=== PATIENT | male | born 1960 | race African-American/Black ===

== ENCOUNTER 2017-02-08 16:16 | Emergency (ER) | payer BC, OTHER ==
[2017-02-08] MEDS ORDERED: FAMOTIDINE INJ/PF 20 MG/2 ML SDV IV ONE (16:47)
[2017-02-08] MEDS ORDERED: DIPHENHYDRAMINE HCL 50 MG/ML VIAL IV ONE (16:47)
--- NOTE | 2017-02-08 16:56 | ER Document Report ---
ED General - General Stated Complaint: SHORTNESS OF BREATH Time Seen by Provider: 02/08/17 16:37 Mode of Arrival: Ambulatory Information source: Patient - HPI Patient complains to provider of: Shortness of breath, diaphoresis Onset: Just prior to arrival Onset/Duration: Sudden Quality of pain: No pain Associated symptoms: Headache, Shortness of breath Exacerbated by: Denies Relieved by: Denies Similar symptoms previously: No Recently seen / treated by doctor: Yes Notes: Patient is a 56-year-old male presenting to the emergency room today complaining of shortness of breath with diaphoresis and chest tightness, as well as a mild headache, he reports that he was seen at urgent care earlier today because he has been experiencing some dizziness for the last few days, they started him on Augmentin for unknown reason, he took his first dose around noon today, around 4 PM he developed the above symptoms, he has never taken Augmentin in the past, otherwise has a history of COPD and eczema, 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, he is not currently a smoker, denies chest pain, no nausea or vomiting Past Medical History - General Information source: Patient - Social History Smoking Status: Former Smoker Family History: Reviewed & Not Pertinent Review of Systems - Review of Systems Constitutional: Chills, Diaphoresis EENT: No symptoms reported Cardiovascular: See HPI Respiratory: See HPI Gastrointestinal: No symptoms reported Genitourinary: No symptoms reported Male Genitourinary: No symptoms reported Musculoskeletal: No symptoms reported Skin: No symptoms reported Hematologic/Lymphatic: No symptoms reported Neurological/Psychological: Headaches -: Yes All other systems reviewed and negative Physical Exam - Vital signs Vitals: Resp Pulse Ox 24 H 92 02/08/17 16:22 02/08/17 16:22 Interpretation: Tachycardic, Tachypneic - General General appearance: Alert In distress: Mild - HEENT Head: Normocephalic, Atraumatic Eyes: Normal Conjunctiva: Normal Extraocular movements intact: Yes Eyelashes: Normal Pupils: PERRL Mucous membranes: Normal Neck: Normal - Respiratory Respiratory status: No respiratory distress, Tachypnea Chest status: Nontender Breath sounds: Normal, Nonproductive cough Chest palpation: Normal - Cardiovascular Rhythm: Regular, Tachycardia Heart sounds: Normal auscultation Murmur: No - Abdominal Inspection: Normal Distension: No distension Bowel sounds: Normal Tenderness: Nontender Organomegaly: No organomegaly - Back Back: Normal, Nontender - Extremities General upper extremity: Normal inspection, Nontender, Normal color, Normal ROM , Normal temperature General lower extremity: Normal inspection, Nontender, Normal color, Normal ROM , Normal temperature, Normal weight bearing. No: Mela's sign - Neurological Neuro grossly intact: Yes Cognition: Normal Orientation: AAOx4 [place] Coma Scale Eye Opening: Spontaneous [place] Coma Scale Verbal: Oriented Ct Coma Scale Motor: Obeys Commands [place] Coma Scale Total: 15 Speech: Normal Motor strength normal: LUE, RUE, LLE, RLE Sensory: Normal - Psychological Associated symptoms: Normal affect, Normal mood - Skin Skin Temperature: Warm Skin Moisture: Diaphoretic - Profusely Skin Color: Normal Course - Re-evaluation Re-evalutation: 02/08/17 20:06 Patient tachycardic with shortness of breath, episodes of lightheadedness over the last few days, profusely diaphoretic, symptoms could possibly be a result of an allergic reaction to Augmentin which he started today and has never taken in the past, also concerned for pulmonary embolus, d-dimer is positive, therefore patient was sent for a CTA He is noted to have elevated creatinine as well, was given IV fluids, after 2 L of IV fluids his tachycardia resolved, he did have transient hypotension which resolved as well, CT scan shows no evidence of PE, however there are multiple pulmonary nodules, pneumatoceles and liver masses Patient was discussed with oncology on-call, Dr. Shaffer, who recommends outpatient follow-up in his office next week 02/08/17 23:39 Lab and imaging findings were discussed with patient and at bedside, patient was strongly cautioned to return to the emergency room immediately if symptoms should worsen in any way, he was advised to discontinue the Augmentin as it may have caused an allergic reaction and appears to be completely unnecessary at this point in time, he was provided with information to follow- up with oncology next week and advised to return at any time should he have any additional concerns, patient and spouse acknowledge understanding and agreement with this plan - Vital Signs Vital signs: Temp Pulse Resp BP Pulse Ox 19 110/75 94 02/08/17 20:30 02/08/17 20:31 02/08/17 20:30 - Laboratory Result Diagrams: 02/08/17 16:47 02/08/17 16:29 Laboratory results interpreted by me: 02/08/17 02/08/17 02/08/17 16:29 16:29 16:29 WBC Hgb Hct RDW Band Neutrophils % Monocytes % (Manual) Abs Neuts (Manual) D-Dimer 3.14 H VBG pH VBG pCO2 Creatinine 1.64 H Est GFR ( Amer) 53 L Est GFR (Non-Af Amer) 44 L Glucose 161 H Total Bilirubin 2.5 H Direct Bilirubin 1.7 H AST 133 H ALT 126 H Alkaline Phosphatase 160 H Creatine Kinase 284 H NT-Pro-B Natriuret Pep 1020 H Urine Protein Urine Blood Urine Urobilinogen 02/08/17 02/08/17 02/08/17 16:29 16:47 17:15 WBC 12.3 H Hgb 13.0 L Hct 36.7 L RDW 14.3 H Band Neutrophils % 6 H Monocytes % (Manual) 1 L Abs Neuts (Manual) 9.0 H D-Dimer VBG pH 7.48 H VBG pCO2 31.8 L Creatinine Est GFR ( Amer) Est GFR (Non-Af Amer) Glucose Total Bilirubin Direct Bilirubin AST ALT Alkaline Phosphatase Creatine Kinase NT-Pro-B Natriuret Pep Urine Protein 30 H Urine Blood MODERATE H Urine Urobilinogen 4.0 H - Diagnostic Test Radiology reviewed: Image reviewed, Reports reviewed - EKG Interpretation by Me EKG shows normal: Sinus rhythm Rate: Tachycardia Discharge - Discharge Clinical Impression: Liver mass, Pulmonary nodules/lesions, multiple Condition: Stable Disposition: HOME, SELF-CARE Instructions: Growth or Mass, Pending Workup ([facility]) Additional Instructions: Follow-up with your primary care provider and an oncologist early next week. Return to the emergency room immediately if symptoms worsen or any additional concerns. Drink plenty of fluids and get plenty of rest. Stop taking the antibiotics that were previously prescribed to you as they may have caused the reaction and are not necessary Referrals: GHULAM REYNOLDS NP-C [Primary Care Provider] - Follow up as needed NAIAL SHAFFER MD [ACTIVE STAFF] - Follow up as needed
--- NOTE | 2017-02-08 17:21 | RADIOLOGY REPORT (SQ) ---
EXAM DESCRIPTION: CHEST PA/LAT COMPLETED DATE/TIME: 02/08/2017 5:05 pm REASON FOR STUDY: db COMPARISON: None. EXAM PARAMETERS: NUMBER OF VIEWS: two views TECHNIQUE: Digital Frontal and Lateral radiographic views of the chest acquired. RADIATION DOSE: NA LIMITATIONS: none FINDINGS: LUNGS AND PLEURA: No infiltrate or effusion. There appears to be prominent pneumatocele a nteriorly in the left lung. This is seen on the lateral view as well. MEDIASTINUM AND HILAR STRUCTURES: No masses or contour abnormalities. HEART AND VASCULAR STRUCTURES: Heart normal size. No evidence for failure. BONES: No acute findings. HARDWARE: None in the chest. OTHER: No other significant finding. IMPRESSION: 1. No acute cardiopulmonary disease. 2. Prominent left-sided pneumatocele. TECHNICAL DOCUMENTATION: JOB ID: [id number] [employer]- All Rights Reserved
[2017-02-08 17:24] LABS: APPEARANCE,URINE SLIGHTLY-CLOUDY; BILIRUBIN,URINE NEGATIVE (NEGATIVE); GLUCOSE, URINE NEGATIVE (NEGATIVE); KETONES,URINE NEGATIVE (NEGATIVE); LEUKOCYTE ESTERASE,URINE NEGATIVE (NEGATIVE); NITRITE,URINE NEGATIVE (NEGATIVE); PROTEIN,URINE 30 mg/dL (NEGATIVE); URINE SPECIFIC GRAVITY 1.006
[2017-02-08 17:33] LABS: ALANINE AMINOTRANSFERASE 126 U/L (21-72); ALBUMIN 3.8 g/dL (3.5-5.0); ALKALINE PHOSPHATASE 160 U/L (38-126); ANION GAP 19 (5-19); ASPARTATE AMINO TRANSFERASE 133 U/L (17-59); BILIRUBIN,DIRECT 1.7 mg/dL (0.0-0.4); BILIRUBIN,TOTAL 2.5 mg/dL (0.2-1.3); BLOOD UREA NITROGEN 15 mg/dL (7-20); CARBON DIOXIDE 22 mmol/L (22-30); CHLORIDE 100 mmol/L (98-107); CREATINE KINASE 284 U/L (55-170); CREATININE RESULT 1.64 mg/dL (0.52-1.25); GLUCOSE 161 mg/dL (75-110); LIPASE 44.9 U/L (23-300); POTASSIUM 3.8 mmol/L (3.6-5.0); SODIUM 141.1 mmol/L (137-145); TOTAL PROTEIN 6.8 g/dL (6.3-8.2)
[2017-02-08 17:40] LABS: HEMATOCRIT 36.7 % (37.9-51.0); HGB HCT DIFFERENCE 2.3; MEAN CORPUSCULAR HEMOGLOBIN 29.7 pg (27.0-33.4); MEAN CORPUSCULAR HGB CONC 35.4 g/dL (32.0-36.0); MEAN CORPUSCULAR VOLUME 84 fl (80-97); RED BLOOD COUNT 4.38 10^6/uL (4.35-5.55); RED CELL DISTRIBUTION WIDTH 14.3 % (11.5-14.0); WHITE BLOOD COUNT 12.3 10^3/uL (4.0-10.5)
[2017-02-08 17:44] LABS: CREATINE KINASE MB 1.38 ng/mL (<4.55); TROPONIN I 0.013 ng/mL
[2017-02-08 17:48] LABS: BAND NEUTROPHILS % (MANUAL) 6 % (3-5); BASOPHILS % (MANUAL) 0 % (0-2); EOSINOPHILS % (MANUAL) 1 % (0-6); LYMPHOCYTES % (MANUAL) 23 % (13-45); TOTAL CELLS COUNTED 100; TOXIC VACUOLATION PRESENT
[2017-02-08 17:50] LABS: ANISOCYTOSIS SLIGHT; POLYCHROMASIA SLIGHT; TOXIC GRANULATION SLIGHT
[2017-02-08 18:18] LABS: VENOUS BLOOD BASE EXCESS 0.4 mmol/L; VENOUS BLOOD PCO2 31.8 mmHg (35-63); VENOUS BLOOD PH 7.48 (7.30-7.42)
--- NOTE | 2017-02-08 19:22 | RADIOLOGY REPORT (SQ) ---
EXAM DESCRIPTION: CTA CHEST COMPLETED DATE/TIME: 02/08/2017 6:44 pm REASON FOR STUDY: SOB COMPARISON: Chest radiograph 02/08/2017 TECHNIQUE: CT scan of the chest performed using helical scanning technique with dynamic intravenous contrast injection. Images reviewed with lung, soft tissue and bone windows. Reconstructed coronal and sagittal MPR images reviewed. Additional 3 dimensional post-processing performed to develop Maximal Intensity Projection images (GA P). All images stored on PACS. All CT scanners at this facility use dose modulation, iterative reconstruction, and/or weight based d osing when appropriate to reduce radiation dose to as low as reasonably achievable (ALARA). [facility]: Dose Right [facility]: CareDose [facility]: Dose Right [facility]: Teradose 4D [facility]: LISNR CONTRAST TYPE AND DOSE: contrast/concentration: Isovue 370.00 mg/ml; Total Contrast Delivered: 82.0 ml; Total Saline Delivered: 80.0 ml Contrast bolus optimized for the pulmonary arteries. Not diagnostic for the aorta. RENAL FUNCTION: BUN 15; creatinine 1.64 RADIATION DOSE: Up-to-date CT equipment and radiation dose reduction techniques were employed. CTDIv ol: 29.8 - 39.7 mGy. DLP: 1241 mGy-cm. . LIMITATIONS: None. FINDINGS: LUNGS AND PLEURA: Severe paraseptal emphysematous change involving predominantly the apica l lungs demonstrating multiple pneumatoceles bilaterally. An 8 mm pulmonary nodule is seen within th e right upper lobe (axial image 24). A 4 mm pulmonary nodule is seen within the right upper lobe (ax ial image 40). A 6 mm and a 4 mm nodular density seen adjacent to the minor fissure likely represent s visual lymph nodes. A 6 mm subpleural pulmonary nodule seen within the right middle lobe (axial im age 71). A 4 mm subpleural pulmonary nodule seen within the right middle lobe (axial image 77). An 8 x 14 mm pleural based nodule is seen within the right lower lobe (axial image 70). An 8 mm subpleu ral pulmonary nodule seen within the right lower lobe (axial image 84). A 6 mm subpleural pulmonary nodule seen within the left lower lobe (axial image 79). A 9 mm subpleural pulmonary nodule seen wit hin the left lower lobe (axial image 82). A 7 mm pulmonary nodule is seen at the left lower lobe bas e (axial image 91). No pleural effusion or pneumothorax is present. AORTA AND GREAT VESSELS: No aneurysm. Contrast bolus not optimized for the aorta. HEART: No pericardial effusion. No significant coronary artery calcifications. PULMONARY ARTERIES: No emboli visualized in the main pulmonary arteries or the segmental branches. HILAR AND MEDIASTINAL STRUCTURES: No identified masses or abnormal nodes. HARDWARE: None in the chest. UPPER ABDOMEN: A 10 x 5 x 8 cm hypo attenuating mass is seen within the dome of the left hepatic lobe . Additionally, a 4 x 3 x 4 cm hypoattenuating mass is seen within the right hepatic lobe. Incident al note is made of nodular thickening of the left adrenal gland. Small hypoattenuating foci within t he left kidney are too small to definitively characterize, but may represent tiny renal cysts. THYROID AND OTHER SOFT TISSUES: No masses. No adenopathy. BONES: No acute or significant finding. 3D MIPS: Confirm above findings. OTHER: No other significant finding. IMPRESSION: 1. Normal CTA of the chest. No pulmonary emboli. 2. Severe paraseptal emphysematous change with multiple pneumatoceles and several pulmonary nodules as detailed above. 3. Large hypo attenuating masses within the liver are of uncertain etiology or significance; however , given the degree of pulmonary disease, findings are suspicious for neoplastic process. Recommend p ulmonology referral. COMMENT: Quality ID # [id number]: Final reports with documentation of one or more dose reduction techniques (e.g., Automated exposure control, adjustment of the mA and/or kV according to patient size, use of iterative reconstruction technique) TECHNICAL DOCUMENTATION: JOB ID: [id number] [employer]- All Rights Reserved
[2017-02-08] MEDS ORDERED: NORMAL SALINE 1000 ML 1,000 ML IV PRN (19:40)
[2017-02-08 20:44] VITALS: BP 110/75
--- NOTE | 2017-02-09 08:41 | EKG REPORT ---
SEVERITY:- ABNORMAL ECG - SINUS TACHYCARDIA PROBABLE RVH W/ SECONDARY REPOL ABNORMALITY INFERIOR INFARCT, AGE INDETERMINATE : Confirmed by: Richy Wilson MD 09-Feb-2017 08:40:36
== END 2017-02-08 20:58 | disposition home or self-care (01) ==
LOC: ER 16:16
DX: R16.0 Hepatomegaly, not elsewhere classified (principal); R91.8 Other nonspecific abnormal finding of lung field; R06.02 Shortness of breath; R07.9 Chest pain, unspecified; R51 Headache; R42 Dizziness and giddiness; J44.9 Chronic obstructive pulmonary disease, unspecified
CPT/HCPCS: 93005; 99285; 96361; 96374; 96375; 36415; 87040; 87086; 82553; 82550; 83690; 85025; 80053; 81001; 84484; 85379; 82803; 83880; 71020; 71275; 93010; J1200; J7030; S0028

== ENCOUNTER 2017-02-10 17:52 | Emergency (ER) | payer SELFPAY ==
[2017-02-10] MEDS ORDERED: LORAZEPAM 1 MG TABLET PO ONE (18:42)
--- NOTE | 2017-02-10 18:44 | ER Document Report ---
ED Medical Screen (RME) - General Chief Complaint: Breathing Difficulty Stated Complaint: BREATHING ISSUES Time Seen by Provider: 02/10/17 18:38 Notes: 56-year-old male patient complaining of feeling dehydrated, shortness of breath , feeling hot, and feeling bad with just laying around all day. States he is drinking plenty fluids. He is noted to be quite tachycardic and breathing fast. He states he felt similarly, only worse when he was seen here 2 nights ago. At that time he had an essentially negative workup with a CTA of the chest abdomen pelvis showing only some emphysematous changes in the lungs. 2 nights ago, his respiratory rate was fast like tonight, he was tachycardic like tonight. He does seem to have some anxiety and depression associated with this. He will be given some Ativan and sent to the back with orders for workup. I have greeted and performed a rapid initial assessment of this patient. A comprehensive ED assessment and evaluation of the patient, analysis of test results and completion of the medical decision making process will be conducted by additional ED providers. TRAVEL OUTSIDE OF THE [place] IN LAST 30 DAYS: No - Related Data Allergies/Adverse Reactions: No Known Allergies Allergy (Unverified 02/10/17 18:42) Past Medical History Pulmonary Medical History: Reports: Hx COPD Renal/ Medical History: Denies: Hx Peritoneal Dialysis Physical Exam - Vital signs Vitals: Temp Pulse Resp BP Pulse Ox 99.3 F 146 H 40 H 120/84 95 02/10/17 17:56 02/10/17 17:56 02/10/17 17:56 02/10/17 17:56 02/10/17 17:56 Course - Vital Signs Vital signs: Temp Pulse Resp BP Pulse Ox 99.3 F 146 H 40 H 120/84 95 02/10/17 17:56 02/10/17 17:56 02/10/17 17:56 02/10/17 17:56 02/10/17 17:56
--- NOTE | 2017-02-10 19:15 | RADIOLOGY REPORT (SQ) ---
EXAM DESCRIPTION: CHEST SINGLE VIEW COMPLETED DATE/TIME: 02/10/2017 7:03 pm REASON FOR STUDY: Tachycardia, difficulty breathing COMPARISON: 02/08/2017. CT chest 02/08/2017. NUMBER OF VIEWS: One view. TECHNIQUE: Single frontal radiographic view of the chest acquired. LIMITATIONS: None. FINDINGS: LUNGS AND PLEURA: Marked bullous disease and regions of scar. No pneumothorax. No acute infiltrate suspected. No evidence of failure. MEDIASTINUM AND HILAR STRUCTURES: No masses. Contour normal. HEART AND VASCULAR STRUCTURES: Heart normal in size. Normal vasculature. BONES: No acute findings. HARDWARE: None in the chest. OTHER: No other significant finding. IMPRESSION: Chronic changes of COPD. Stable chest. TECHNICAL DOCUMENTATION: JOB ID: [id number] [employer]- All Rights Reserved
[2017-02-10 19:23] LABS: HEMATOCRIT 37.2 % (37.9-51.0); HEMOGLOBIN 13.1 g/dL (13.5-17.0); HGB HCT DIFFERENCE 2.1; MEAN CORPUSCULAR HEMOGLOBIN 29.6 pg (27.0-33.4); MEAN CORPUSCULAR HGB CONC 35.1 g/dL (32.0-36.0); MEAN CORPUSCULAR VOLUME 84 fl (80-97); RED BLOOD COUNT 4.41 10^6/uL (4.35-5.55); RED CELL DISTRIBUTION WIDTH 14.5 % (11.5-14.0); WHITE BLOOD COUNT 21.5 10^3/uL (4.0-10.5)
[2017-02-10 19:26] LABS: APPEARANCE,URINE TURBID; BILIRUBIN,URINE NEGATIVE (NEGATIVE); GLUCOSE, URINE NEGATIVE (NEGATIVE); KETONES,URINE NEGATIVE (NEGATIVE); LEUKOCYTE ESTERASE,URINE NEGATIVE (NEGATIVE); NITRITE,URINE NEGATIVE (NEGATIVE); PROTEIN,URINE 100 mg/dL (NEGATIVE); URINE SPECIFIC GRAVITY 1.024
[2017-02-10 19:44] LABS: ALANINE AMINOTRANSFERASE 180 U/L (21-72); ALBUMIN 3.4 g/dL (3.5-5.0); ALKALINE PHOSPHATASE 229 U/L (38-126); ANION GAP 15 (5-19); ASPARTATE AMINO TRANSFERASE 133 U/L (17-59); BILIRUBIN,DIRECT 0.8 mg/dL (0.0-0.4); BILIRUBIN,TOTAL 1.2 mg/dL (0.2-1.3); BLOOD UREA NITROGEN 19 mg/dL (7-20); CALCIUM 8.9 mg/dL (8.4-10.2); CARBON DIOXIDE 22 mmol/L (22-30); CHLORIDE 101 mmol/L (98-107); CREATINE KINASE 770 U/L (55-170); CREATININE RESULT 1.22 mg/dL (0.52-1.25); GLUCOSE 131 mg/dL (75-110); MAGNESIUM 2.7 mg/dL (1.6-2.3); POTASSIUM 4.3 mmol/L (3.6-5.0); TOTAL PROTEIN 6.5 g/dL (6.3-8.2)
[2017-02-10] MEDS ORDERED: NORMAL SALINE 1000 ML 1,000 ML IV ONE (19:57)
[2017-02-10 19:59] LABS: BAND NEUTROPHILS % (MANUAL) 7 % (3-5); BASOPHILS % (MANUAL) 0 % (0-2); EOSINOPHILS % (MANUAL) 0 % (0-6); LYMPHOCYTES % (MANUAL) 3 % (13-45); TOTAL CELLS COUNTED 100
--- NOTE | 2017-02-10 20:01 | ER Document Report ---
ED Respiratory Problem - General Chief Complaint: Breathing Difficulty Stated Complaint: BREATHING ISSUES Time Seen by Provider: 02/10/17 18:38 Mode of Arrival: Ambulatory Information source: Patient Notes: Patient states that he was at home this evening and realized that he had forgotten to take his Dulera. Patient started to have shortness of breath and felt like his heart was racing. Patient states he had a similar episode like this 2 days ago for which she was seen in the emergency department. At that visit patient was diagnosed with multiple pulmonary nodules as well as a liver mass. Patient plans to follow-up with oncology this week although has not been able to make the appointment yet due to the weekend. Patient denies any chest pain, cough or pain. Patient denies any nausea, vomiting or diarrhea. Patient denies any fever. Patient presently denies any dyspnea symptoms at this time. TRAVEL OUTSIDE OF THE [place] IN LAST 30 DAYS: No - HPI Patient complains to provider of: Short of breath Onset: This evening Duration: Gone now Quality of pain: No pain Pain Level: Denies Context: Hx COPD. denies: Recent cardiac event, Recent immobilization, Recent surgery Associated symptoms: Heart racing, Short of breath. 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 denies: Fever, Recent illness EENT: No symptoms reported Cardiovascular: Heart racing, Dyspnea Respiratory: Short of breath Gastrointestinal: No symptoms reported. denies: Abdominal pain, Nausea, Vomiting Genitourinary: No symptoms reported Male Genitourinary: No symptoms reported Musculoskeletal: No symptoms reported. denies: Back pain Skin: No symptoms reported Hematologic/Lymphatic: No symptoms reported Neurological/Psychological: No symptoms reported Physical Exam - Vital signs Vitals: Temp Pulse Resp BP Pulse Ox 99.3 F 146 H 40 H 120/84 95 02/10/17 17:56 02/10/17 17:56 02/10/17 17:56 02/10/17 17:56 02/10/17 17:56 Interpretation: Tachycardic - Notes Notes: HR 110's, o2 sat 87% on room air, oxygen applied at 1.5 L NC, sat increased to 96% - General General appearance: Appears well, Alert In distress: None - HEENT Head: Normocephalic, Atraumatic Eyes: Normal Nasal: Normal Mouth/Lips: Normal Mucous membranes: Normal Pharynx: Normal Neck: Normal, Supple. No: Lymphadenopathy - Respiratory Respiratory status: No respiratory distress Chest status: Nontender Breath sounds: Normal Chest palpation: Normal - Cardiovascular Rhythm: Tachycardia Heart sounds: S1 appreciated, S2 appreciated Murmur: No - Abdominal Inspection: Obese Distension: No distension Bowel sounds: Normal Tenderness: Tender - epigastric tenderness Organomegaly: No organomegaly - Back Back: Normal, Nontender. No: CVA tenderness - Extremities General upper extremity: Normal inspection, Nontender, Normal ROM General lower extremity: Normal inspection, Nontender, Normal ROM. No: Tender, Edema - Neurological Neuro grossly intact: Yes Cognition: Normal [place] Coma Scale Eye Opening: Spontaneous [place] Coma Scale Verbal: Oriented [place] Coma Scale Motor: Obeys Commands [place] Coma Scale Total: 15 - Psychological Associated symptoms: Normal affect, Normal mood - Skin Skin Temperature: Warm Skin Moisture: Dry Skin Color: Normal Course - Re-evaluation Re-evalutation: 02/10/17 22:42 Patient was ambulated in the hallway in his heart rate maintained in the 100s. Patient's oxygen saturation maintained at 91-92%. Patient was not tachypneic. Reviewed patient's presentation, diagnostic test results with Dr. Morris who did see patient 2 days prior. No additional testing advised at this time. Patient has findings concerning for cancer and will need outpatient follow-up with oncology. Patient was hydrated here in the emergency department and tachycardia improved. Patient denies any chest pain or dyspnea at this time. Patient without any complaints presently. Plan will be to discharge patient with follow-up with Dr. Jayaram tomorrow for further evaluation. Patient did have a CTA performed 2 days ago which did not demonstrate any pulmonary embolism but did note numerous pulmonary nodules in addition to a liver mass. No concern for PE at this time. - Vital Signs Vital signs: Temp Pulse Resp BP Pulse Ox 99.3 F 146 H 20 118/76 93 02/10/17 17:56 02/10/17 17:56 02/10/17 22:23 02/10/17 22:23 02/10/17 22:23 - Laboratory Result Diagrams: 02/10/17 18:55 02/10/17 18:55 Laboratory results interpreted by me: 02/10/17 02/10/17 02/10/17 18:10 18:55 18:55 WBC 21.5 H Hgb 13.1 L Hct 37.2 L RDW 14.5 H Seg Neuts % (Manual) 82 H Band Neutrophils % 7 H Lymphocytes % (Manual) 3 L Abs Neuts (Manual) 19.1 H Abs Monocytes (Manual) 1.5 H Glucose 131 H Magnesium 2.7 H Direct Bilirubin 0.8 H AST 133 H ALT 180 H Alkaline Phosphatase 229 H Creatine Kinase 770 H Albumin 3.4 L Urine Protein 100 H Urine Blood SMALL H Urine Urobilinogen 4.0 H Urine Ascorbic Acid 40 H 02/10/17 22:43 Labs- Entire Visit 02/10/17 02/10/17 02/10/17 18:10 18:55 18:55 WBC 21.5 H RBC 4.41 Hgb 13.1 L Hct 37.2 L MCV 84 MCH 29.6 MCHC 35.1 RDW 14.5 H Plt Count 314 Total Counted 100 Seg Neutrophils % Not Reportable Seg Neuts % (Manual) 82 H Band Neutrophils % 7 H Lymphocytes % Not Reportable Lymphocytes % (Manual) 3 L Atypical Lymphs % 1 Monocytes % Not Reportable Monocytes % (Manual) 7 Eosinophils % Not Reportable Eosinophils % (Manual) 0 Basophils % Not Reportable Basophils % (Manual) 0 Absolute Neutrophils Not Reportable Abs Neuts (Manual) 19.1 H Absolute Lymphocytes Not Reportable Abs Lymphs (Manual) 0.9 Absolute Monocytes Not Reportable Abs Monocytes (Manual) 1.5 H Absolute Eosinophils Not Reportable Absolute Eos (Manual) 0.0 Absolute Basophils Not Reportable Abs Basophils (Manual) 0.0 Toxic Vacuolation PRESENT Platelet Comment ADEQUATE Polychromasia SLIGHT Anisocytosis SLIGHT Sodium 138.0 Potassium 4.3 Chloride 101 Carbon Dioxide 22 Anion Gap 15 BUN 19 Creatinine 1.22 Est GFR ( Amer) > 60 Est GFR (Non-Af Amer) > 60 Glucose 131 H Calcium 8.9 Magnesium 2.7 H Total Bilirubin 1.2 Direct Bilirubin 0.8 H Indirect Bilirubin Not Reportable Neonat Total Bilirubin Not Reportable AST 133 H ALT 180 H Alkaline Phosphatase 229 H Creatine Kinase 770 H Troponin I NT-Pro-B Natriuret Pep Total Protein 6.5 Albumin 3.4 L Lipase TSH Urine Color YELLOW Urine Appearance TURBID Urine pH 5.0 Ur Specific [place] 1.024 Urine Protein 100 H Urine Glucose (UA) NEGATIVE Urine Ketones NEGATIVE Urine Blood SMALL H Urine Nitrite NEGATIVE Urine Bilirubin NEGATIVE Urine Urobilinogen 4.0 H Ur Leukocyte Esterase NEGATIVE Urine WBC (Auto) 3 Urine RBC (Auto) 2 Squamous Epi Cells Auto 3 Urine Mucus (Auto) MANY Urine Ascorbic Acid 40 H 02/10/17 02/10/17 02/10/17 18:55 18:55 18:55 WBC RBC Hgb Hct MCV MCH MCHC RDW Plt Count Total Counted Seg Neutrophils % Seg Neuts % (Manual) Band Neutrophils % Lymphocytes % Lymphocytes % (Manual) Atypical Lymphs % Monocytes % Monocytes % (Manual) Eosinophils % Eosinophils % (Manual) Basophils % Basophils % (Manual) Absolute Neutrophils Abs Neuts (Manual) Absolute Lymphocytes Abs Lymphs (Manual) Absolute Monocytes Abs Monocytes (Manual) Absolute Eosinophils Absolute Eos (Manual) Absolute Basophils Abs Basophils (Manual) Toxic Vacuolation Platelet Comment Polychromasia Anisocytosis Sodium Potassium Chloride Carbon Dioxide Anion Gap BUN Creatinine Est GFR ( Amer) Est GFR (Non-Af Amer) Glucose Calcium Magnesium Total Bilirubin Direct Bilirubin Indirect Bilirubin Neonat Total Bilirubin AST ALT Alkaline Phosphatase Creatine Kinase Troponin I 0.012 NT-Pro-B Natriuret Pep 508 Total Protein Albumin Lipase 84.8 TSH 2.54 Urine Color Urine Appearance Urine pH Ur Specific [place] Urine Protein Urine Glucose (UA) Urine Ketones Urine Blood Urine Nitrite Urine Bilirubin Urine Urobilinogen Ur Leukocyte Esterase Urine WBC (Auto) Urine RBC (Auto) Squamous Epi Cells Auto Urine Mucus (Auto) Urine Ascorbic Acid Reviewed labs from previous ER visit as well - Diagnostic Test Radiology reviewed: Reports reviewed - Reviewed reports from previous ER visit Discharge - Discharge Clinical Impression: Liver mass, Pulmonary nodules/lesions, multiple Dyspnea Qualifiers: Dyspnea type: unspecified Qualified Code(s): R06.00 - Dyspnea, unspecified Condition: Stable Disposition: HOME, SELF-CARE Instructions: Dyspnea, Nonspecific ([facility]), Growth or Mass, Pending Workup ([facility]) Additional Instructions: Return immediately for any new or worsening symptoms Followup with your primary care provider, call tomorrow to make a followup appointment Follow-up with Dr. Shaffer, call their office tomorrow morning for an appointment time. It is important that you stay well-hydrated. Forms: Return to Work Referrals: NAILA SHAFFER MD [ACTIVE STAFF] - Follow up tomorrow
[2017-02-10 20:02] LABS: ADD ON TESTING BLD IN LAB ACKNOWLEDGE; ANISOCYTOSIS SLIGHT; POLYCHROMASIA SLIGHT; TOXIC VACUOLATION PRESENT
--- NOTE | 2017-02-10 20:09 | EKG REPORT ---
SEVERITY:- ABNORMAL ECG - SINUS TACHYCARDIA PROBABLE RIGHT VENTRICULAR HYPERTROPHY INFERIOR INFARCT, AGE INDETERMINATE : Confirmed by: Richy Wilson MD 10-Feb-2017 20:08:27
[2017-02-10 20:12] LABS: TROPONIN I 0.012 ng/mL
[2017-02-10 20:19] LABS: LIPASE 84.8 U/L (23-300)
[2017-02-10] MEDS ORDERED: NORMAL SALINE 1000 ML 1,000 ML IV PRN (21:12)
[2017-02-10 23:01] VITALS: BP 118/76
== END 2017-02-10 22:59 | disposition home or self-care (01) ==
LOC: ER 17:52
DX: R16.0 Hepatomegaly, not elsewhere classified (principal); R91.8 Other nonspecific abnormal finding of lung field; R06.00 Dyspnea, unspecified; J44.9 Chronic obstructive pulmonary disease, unspecified; E66.9 Obesity, unspecified
CPT/HCPCS: 93005; 99284; 96361; 96374; 36415; 87040; 82550; 83690; 83735; 84443; 85025; 80053; 81001; 84484; 83880; 71010; 93010; J7030

== ENCOUNTER 2017-02-15 23:49 | Inpatient (IN) | payer SELFPAY ==
[2017-02-16] MEDS: MAGNESIUM SULFATE/D5W 1 GM/100 ML RTUPB IV SCH ×2 (00:18→00:19)
[2017-02-16 00:38] LABS: VENOUS BLOOD BASE EXCESS 1.7 mmol/L; VENOUS BLOOD HCO3 23.7 mmol/L (20-32); VENOUS BLOOD PCO2 30.6 mmHg (35-63); VENOUS BLOOD PH 7.51 (7.30-7.42)
[2017-02-16 00:40] LABS: HEMATOCRIT 33.6 % (37.9-51.0); HEMOGLOBIN 11.7 g/dL (13.5-17.0); HGB HCT DIFFERENCE 1.5; MEAN CORPUSCULAR HEMOGLOBIN 29.3 pg (27.0-33.4); MEAN CORPUSCULAR HGB CONC 34.9 g/dL (32.0-36.0); MEAN CORPUSCULAR VOLUME 84 fl (80-97); RED BLOOD COUNT 4.01 10^6/uL (4.35-5.55); RED CELL DISTRIBUTION WIDTH 14.5 % (11.5-14.0); WHITE BLOOD COUNT 25.2 10^3/uL (4.0-10.5)
--- NOTE | 2017-02-16 00:53 | ER Document Report ---
ED General - General Chief Complaint: Shortness Of Breath Stated Complaint: DIFFICULTY BREATHING Time Seen by Provider: 02/15/17 23:57 Notes: Patient is a 56-year-old male who is a former smoker with a recent diagnosis of lung cancer. He presents with complaint of difficulty breathing. He was diagnosed with pneumonia 2 weeks 3 week ago. He had allergic reaction to amoxicillin and therefore switched over to Levaquin. He denies any fevers until tonight. He has fever of over 102. He was given 975 mg of Tylenol by the paramedics. Paramedics and when they arrived his oxygen saturation was 83% and he was working very hard to breathe with poor air movement and wheezing. He was given albuterol treatment as well as Solu-Medrol. He was placed on CPAP. He now arrives here with better air movement is feeling some improvement. He is able to speak in 4-5 word sentences. He has no other complaints at this time. He says he does have a history of asthma. He is a former smoker. He denies ever needing to be on a ventilator or BiPAP in the past. TRAVEL OUTSIDE OF THE [place] IN LAST 30 DAYS: No - Related Data Allergies/Adverse Reactions: No Known Allergies Allergy (Unverified 02/16/17 06:05) Past Medical History - Social History Smoking Status: Former Smoker Frequency of alcohol use: None Drug Abuse: None Family History: Reviewed & Not Pertinent Patient has suicidal ideation: No Patient has homicidal ideation: No Pulmonary Medical History: Reports: Hx COPD Renal/ Medical History: Denies: Hx Peritoneal Dialysis Skin Medical History: Reports Hx Psoriasis Past Surgical History: Reports: Hx Herniorrhaphy Review of Systems - Review of Systems Notes: My Normal Review Basic REVIEW OF SYSTEMS: CONSTITUTIONAL : Denies fever, chills, or sweats. Denies recent illness. EENT: Denies eye, ear, throat, or mouth pain or symptoms. Denies nasal or sinus congestion. CARDIOVASCULAR: Denies chest pain. RESPIRATORY: Difficulty breathing. GASTROINTESTINAL: Denies abdominal pain. Denies nausea, vomiting, or diarrhea. MUSCULOSKELETAL: Denies neck or back pain or joint pain or swelling. SKIN: Denies rash or skin lesions. NEUROLOGICAL: Denies altered mental status or loss of consciousness. Denies headache. Denies weakness or paralysis or loss of use of either side. Denies problems with gait or speech. Denies sensory or motor loss. ALL OTHER SYSTEMS REVIEWED AND NEGATIVE. Physical Exam - Vital signs Vitals: Resp Pulse Ox 26 H 99 02/16/17 00:01 02/16/17 00:01 - Notes Notes: General Appearance: Well nourished, alert, cooperative, moderate acute distress , no obvious discomfort. Vitals: reviewed, See vital signs table. Head: no swelling or tenderness to the head Eyes: PERRL, EOMI, Conjuctiva clear Mouth: No decreasd moisture Throat: No tonsillar inflammation, No airway obstruction, No lymphadenopathy Neck: Supple, no neck tenderness Lungs: scattered wheezing, No rales, No rhonci, No accessory muscle use, good air exchange bilaterally. Heart: Normal rate, Regular rythm, No murmur, no rub Abdomen: Normal BS, soft, No rigidity, No abdominal tenderness, No guarding, no rebound, no abdominal masses, no organomegaly Extremities: strength 5/5 in all extremities, good pulses in all extremities, no swelling or tenderness in the extremities, no edema. Skin: warm, dry, appropriate color, no rash Neuro: speech clear, oriented x 3, normal affect, responds appropriately to questions. Course - Re-evaluation Re-evalutation: 02/16/17 06:41 I did speak with Dr. Barrett who agrees to admit the patient except the patient. On reevaluation patient's work of breathing is much improved. He is no longer tachypneic. His lung sanchez are clear. He looks well. Does have a white count of 25,000 therefore I did start him on vancomycin. He is already on Levaquin. Patient will be admitted for further workup and treatment. I suspect that he probably has pneumonia even though this is not currently seen on chest x-ray. Dictation of this chart was performed using voice recognition software; therefore, there may be some unintended grammatical errors. - Vital Signs Vital signs: Temp Pulse Resp BP Pulse Ox 98.1 F 84 20 115/70 97 02/16/17 04:40 02/16/17 04:40 02/16/17 04:40 02/16/17 04:40 02/16/17 04:40 - Laboratory Result Diagrams: 02/16/17 00:20 02/16/17 01:36 Laboratory results interpreted by me: 02/16/17 02/16/17 02/16/17 00:20 00:20 00:20 WBC 25.2 H RBC 4.01 L Hgb 11.7 L Hct 33.6 L RDW 14.5 H Plt Count 544 H Seg Neuts % (Manual) 88 H Lymphocytes % (Manual) 8 L Abs Neuts (Manual) 22.2 H VBG pH 7.51 H VBG pCO2 30.6 L Sodium Chloride Creatinine Est GFR (Non-Af Amer) Glucose Lactic Acid 2.5 H Calcium Total Bilirubin Direct Bilirubin AST ALT Alkaline Phosphatase Total Protein Albumin 02/16/17 01:36 WBC RBC Hgb Hct RDW Plt Count Seg Neuts % (Manual) Lymphocytes % (Manual) Abs Neuts (Manual) VBG pH VBG pCO2 Sodium 132.6 L Chloride 93 L Creatinine 1.40 H Est GFR (Non-Af Amer) 52 L Glucose 162 H Lactic Acid Calcium 8.0 L Total Bilirubin 2.3 H Direct Bilirubin 1.9 H AST 71 H ALT 87 H Alkaline Phosphatase 213 H Total Protein 6.1 L Albumin 2.9 L - EKG Interpretation by Me Additional EKG results interpreted by me: 02/16/17 00:53 EKG is reviewed and interpreted by me. EKG shows sinus tachycardia with a rate of [address] segment elevation or depression. No ischemic T-wave inversions. AL interval, QRS duration, QTc intervals are within normal range. Old EKG for comparison is from February 10, 2017. 02/16/17 00:55 Discharge - Discharge Clinical Impression: Hypoxemia Dyspnea Qualifiers: Dyspnea type: shortness of breath Qualified Code(s): R06.02 - Shortness of breath Leukocytosis Qualifiers: Leukocytosis type: unspecified Qualified Code(s): D72.829 - Elevated white blood cell count, unspecified Condition: Stable Disposition: ADMITTED INPATIENT Admitting Provider: Hospitalist Unit Admitted: [facility]
[2017-02-16 00:58] LABS: BASOPHILS % (MANUAL) 0 % (0-2); EOSINOPHILS % (MANUAL) 0 % (0-6); LYMPHOCYTES % (MANUAL) 8 % (13-45); TOTAL CELLS COUNTED 100
[2017-02-16 00:59] LABS: ANISOCYTOSIS SLIGHT; TARGET CELLS SLIGHT; TOXIC GRANULATION SLIGHT
[2017-02-16] MEDS ORDERED: VANCOMYCIN HCL INJ 1000 MG VIAL IV ONE (01:25)
--- NOTE | 2017-02-16 01:27 | RADIOLOGY REPORT (SQ) ---
EXAM DESCRIPTION: CHEST SINGLE VIEW CLINICAL HISTORY: fever, dyspnea COMPARISON: 02/10/2017 FINDINGS: Single frontal view of the chest. The cardiomediastinal silhouette has normal size and contour. No consolidation, pneumothorax, or pleural effusion. No displaced rib fractures identified. Leads overlie the chest. Upper abdominal soft tissues are unremarkable. Multiple large bulla identified. IMPRESSION: 1. No acute pulmonary process identified.
[2017-02-16 02:41] LABS: ALANINE AMINOTRANSFERASE 87 U/L (21-72); ALBUMIN 2.9 g/dL (3.5-5.0); ALKALINE PHOSPHATASE 213 U/L (38-126); ANION GAP 17 (5-19); ASPARTATE AMINO TRANSFERASE 71 U/L (17-59); BILIRUBIN,DIRECT 1.9 mg/dL (0.0-0.4); BILIRUBIN,TOTAL 2.3 mg/dL (0.2-1.3); BLOOD UREA NITROGEN 20 mg/dL (7-20); CARBON DIOXIDE 23 mmol/L (22-30); CHLORIDE 93 mmol/L (98-107); GLUCOSE 162 mg/dL (75-110); POTASSIUM 4.4 mmol/L (3.6-5.0); SODIUM 132.6 mmol/L (137-145); TOTAL PROTEIN 6.1 g/dL (6.3-8.2)
[2017-02-16] MEDS ORDERED: LEVALBUTEROL HCL NEB 1.25 MG/3 ML AMPUL NEB PRN (02:57)
[2017-02-16] MEDS ORDERED: ACETAMINOPHEN 325 MG TABLET PO PRN (02:57)
[2017-02-16] MEDS ORDERED: NORMAL SALINE 1000 ML 1,000 ML IV PRN (02:57)
[2017-02-16] MEDS ORDERED: LORAZEPAM INJ 2 MG/1 ML VIAL IV ONE (03:05)
[2017-02-16] MEDS ORDERED: LORAZEPAM INJ 2 MG/1 ML VIAL IV PRN (03:05)
[2017-02-16] MEDS ORDERED: IPRATROPIUM/ALBUTEROL 0.5-2.5 MG/3 ML AMPUL NEB ONE ×2 (03:15)
[2017-02-16] MEDS ORDERED: METHYLPREDNISOLONE INJ 125 MG/2 ML SDV IV ONE (03:15)
[2017-02-16] MEDS ORDERED: CEFTRIAXONE 1 GM/D5W RTU 1 GM/50 ML RTUPB IV ONE (03:30)
--- NOTE | 2017-02-16 04:44 | PDOC H&P ---
History of Present Illness Admission Date/PCP: 02/16/17 02:22 Urgent care Onc: Toño History of Present Illness: MERYL CAM is a 56 year old male with past medical history of COPD, psoriasis who presents to the emergency department with increasing shortness of breath. At approximately 11 PM patient became increasingly short of breath. He denies any cough but does report of fever of 101 at home. He reports associated chills. Reports he was recently placed on antibiotics but they cannot recall the name. He has not been eating very much lately. Patient has had a recent diagnosis of a new liver mass and possibly also kidney mass with what are possibly metastatic lesions to the lung. Patient denies any productivity to his cough or hemoptysis. Patient required several breathing treatments as well as the initiation of BiPAP to maintain his oxygen saturation. Is referred to the hospital service for COPD exacerbation with possible early pneumonia and sepsis. Past Medical History Pulmonary Medical History: Reports: Chronic Obstructive Pulmonary Disease (COPD) Malignancy Medical History: Reports: Other - New masses Skin Medical History: Reports: Psoriasis Past Surgical History Past Surgical History: Reports: Herniorrhaphy Social History Smoking Status: Former Smoker Frequency of Alcohol Use: Heavy Amount of Alcoholic Beverages Per Day: 4-5 shots several times a week Hx Recreational Drug Use: No Hx Prescription Drug Abuse: No - Advance Directive Resuscitation Status: Full Code Surrogate healthcare decision maker:: Cherrie Cam, Family History Family History: COPD, Malignancy Parental Family History Reviewed: Yes Children Family History Reviewed: Yes Sibling(s) Family History Reviewed.: Yes Medication/Allergy Allergies/Adverse Reactions: amoxicillin Allergy (Verified 02/16/17 03:37) Review of Systems Constitutional: PRESENT: anorexia, chills, fatigue, fever(s), weight loss. ABSENT: headache(s), weight gain Eyes: ABSENT: visual disturbances Ears: ABSENT: hearing changes Cardiovascular: ABSENT: chest pain, dyspnea on exertion, edema, orthropnea, palpitations Respiratory: PRESENT: dyspnea. ABSENT: cough, hemoptysis, sputum Gastrointestinal: PRESENT: diarrhea. ABSENT: abdominal pain, bloating, constipation, hematemesis, hematochezia, melena, nausea, vomiting Genitourinary: ABSENT: dysuria, hematuria, nocturia Musculoskeletal: ABSENT: joint swelling Integumentary: ABSENT: rash, wounds Neurological: ABSENT: abnormal gait, abnormal speech, confusion, dizziness, focal weakness, syncope Psychiatric: ABSENT: anxiety, depression, homidical ideation, suicidal ideation Endocrine: ABSENT: cold intolerance, heat intolerance, polydipsia, polyuria Hematologic/Lymphatic: ABSENT: easy bleeding, easy bruising Physical Exam Vital Signs: Temp Pulse Resp BP Pulse Ox 99.5 F 20 101/80 100 02/16/17 00:28 02/16/17 02:01 02/16/17 02:01 02/16/17 02:01 General appearance: PRESENT: obese, well-developed, well-nourished, other - Moderate respiratory distress on BiPAP Head exam: PRESENT: atraumatic, normocephalic Eye exam: PRESENT: conjunctiva pink, EOMI, PERRLA, scleral icterus Ear exam: PRESENT: normal external ear exam Mouth exam: PRESENT: moist, tongue midline Neck exam: ABSENT: JVD, lymphadenopathy, thyromegaly, tracheal deviation Respiratory exam: PRESENT: accessory muscle use, clear to auscultation ajit, prolonged expiratory phas, symmetrical, tachypnea, unlabored, wheezes - Bilateral expiratory. ABSENT: rales, retraction, rhonchi, stridor Cardiovascular exam: PRESENT: RRR, +S1, +S2, tachycardia. ABSENT: diastolic murmur, rubs, systolic murmur Pulses: PRESENT: normal dorsalis pedis pul Vascular exam: PRESENT: normal capillary refill GI/Abdominal exam: PRESENT: distended, normal bowel sounds, soft, tenderness - Right upper quadrant. ABSENT: firm, guarding, mass, organolmegaly, rebound Rectal exam: PRESENT: deferred Extremities exam: PRESENT: full ROM. ABSENT: calf tenderness, clubbing, pedal edema Neurological exam: PRESENT: alert, awake, oriented to person, oriented to place , oriented to time, oriented to situation, CN II-XII grossly intact. ABSENT: motor sensory deficit Psychiatric exam: PRESENT: anxious, appropriate affect. ABSENT: homicidal ideation, suicidal ideation Skin exam: PRESENT: dry, intact, warm. ABSENT: cyanosis, rash Results Laboratory Results: 02/16/17 02/16/17 02/16/17 00:20 00:20 00:20 WBC 25.2 H Hgb 11.7 L Hct 33.6 L Plt Count 544 H Seg Neuts % (Manual) 88 H VBG pH VBG pCO2 VBG HCO3 Potassium Cancelled Chloride Cancelled Carbon Dioxide Cancelled Anion Gap Cancelled BUN Cancelled Creatinine Cancelled Est GFR ( Amer) Cancelled Glucose Cancelled Lactic Acid 2.5 H Calcium Cancelled Total Bilirubin Cancelled Direct Bilirubin Cancelled AST Cancelled ALT Cancelled Alkaline Phosphatase Cancelled Total Protein Cancelled Albumin Cancelled 02/16/17 00:20 WBC Hgb Hct Plt Count Seg Neuts % (Manual) VBG pH 7.51 H VBG pCO2 30.6 L VBG HCO3 23.7 Potassium Chloride Carbon Dioxide Anion Gap BUN Creatinine Est GFR ( Amer) Glucose Lactic Acid Calcium Total Bilirubin Direct Bilirubin AST ALT Alkaline Phosphatase Total Protein Albumin Impressions: Chest X-Ray 02/15/17 23:59 IMPRESSION: 1. No acute pulmonary process identified. Assessment & Plan - Diagnosis (1) Sepsis Qualifiers: Sepsis type: sepsis due to unspecified organism Qualified Code(s): A41.9 - Sepsis, unspecified organism Is this a current diagnosis for this admission?: Yes Plan: Patient met sepsis criteria on admission with probable source of early pneumonia. Selected Entries 02/16/17 02/16/17 02/16/17 00:01 00:06 00:28 Temperature 99.5 F Heart Rate ( 144 Monitors) Respiratory 26 H Rate O2 Sat by Pulse 99 Oximetry Oxygen Delivery Method ( includes room air) Fraction of 40 Inspired Oxygen (FIO2) 02/16/17 00:42 Temperature Heart Rate ( Monitors) Respiratory Rate O2 Sat by Pulse Oximetry Oxygen Delivery Bi-pap Method ( includes room air) Fraction of Inspired Oxygen (FIO2) (2) COPD exacerbation Is this a current diagnosis for this admission?: Yes Plan: Patient has definite COPD exacerbation. Scheduled Solu-Medrol, every 6 hours duo nebs, prn Xopenex, and BiPAP (3) Liver mass Is this a current diagnosis for this admission?: Yes Plan: Patient has several liver masses with what are possibly metastatic lung lesions and also a possible kidney lesion as well. He is apparently to have further study of this on Saturday. Will consult his oncologist for further guidance on this. (4) Acute hypoxemic respiratory failure Is this a current diagnosis for this admission?: Yes Plan: Continue BiPAP and oxygen as needed (5) Alcohol abuse Is this a current diagnosis for this admission?: Yes Plan: Patient reports he does not drink daily and denies ever having DTs. Will place as needed Ativan and placed patient on thiamine, folic acid, and multivitamin. Check a magnesium. Continue to monitor patient for signs of withdrawal. Continue to monitor on telemetry for concerns for arrhythmia. (6) Severe obesity (BMI 35.0-35.9 with comorbidity) Is this a current diagnosis for this admission?: Yes (7) Anemia Qualifiers: Anemia type: unspecified type Qualified Code(s): D64.9 - Anemia, unspecified Is this a current diagnosis for this admission?: Yes Plan: Likely secondary to underlying malignancy. Defer to outpatient evaluation. (8) Impaired fasting glucose Is this a current diagnosis for this admission?: Yes Plan: Check hemoglobin A1c (9) Chronic kidney disease Qualifiers: Chronic kidney disease stage: stage 2 (mild) Qualified Code(s): N18.2 - Chronic kidney disease, stage 2 (mild) Is this a current diagnosis for this admission?: Yes Plan: Patient appears to have some mild chronic kidney disease, but currently does appear to be mildly dehydrated. Will place him on gentle IV hydration and repeat study. 02/08/17 02/10/17 02/16/17 16:29 18:55 01:36 Creatinine 1.64 H 1.22 1.40 H - Time Time Spent: 50 to 70 Minutes Medications reviewed and adjusted accordingly: Yes Anticipated discharge: Home Within: Other - Upon improvement of symptomatology - Inpatient Certification Based on my medical assessment, after consideration of the patient's comorbidities, presenting symptoms, or acuity I expect that the services needed warrant INPATIENT care.: Yes Medical Necessity: Need For IV Fluids, Need for Nebulizer Therapy and Monitoring of Response, Need for IV Antibiotics, Need for Surgery Post Hospital Care: D/C Pot Puller Documentation
[2017-02-16] MEDS: HEPARIN SOD (PORCINE) 5,000 UNIT/ML 1 ML SYRINGE SUBCUT SCH ×3 (05:16→21:03)
[2017-02-16] MEDS: METHYLPREDNISOLONE INJ 125 MG/2 ML SDV IV SCH ×3 (05:35→21:03)
[2017-02-16] MEDS: IPRATROPIUM/ALBUTEROL 0.5-2.5 MG/3 ML AMPUL NEB SCH ×3 (08:56→20:19)
--- NOTE | 2017-02-16 09:40 | PDOC CONSULTATION ---
Consultation Consult Date: 02/16/17 Consult reason:: Liver and Lung masses History of Present Illness Admission Date/PCP: 02/16/17 02:22 History of Present Illness: Mr. Cam is a 56 year old male who has been seen by my associate, Dr. Lundberg. Patient states that he has a dye test on his kidneys tomorrow here at the hospital. This was arranged as an outpatient. However, last evening, he developed worsening dyspnea and presented to the ED. He was admitted for Sepsis and COPD exacerbation. Past Medical History Pulmonary Medical History: Reports: Chronic Obstructive Pulmonary Disease (COPD) Malignancy Medical History: Reports: Other - New masses Skin Medical History: Reports: Psoriasis Psychiatric Medical History: Denies: Depression Past Surgical History Past Surgical History: Patient denies any past surgical history. 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 Smoking Status: Former Smoker Last Time Smoked: 11 years ago. Amount of Alcoholic Beverages Per Day: Patient states the he drinks but will not quantify. Hx Recreational Drug Use: No Drugs: Marijuana Hx Prescription Drug Abuse: No Past Social History Note: He lives with his and his 2 children and 3 grandchildren with one on the way. - Advance Directive Resuscitation Status: Full Code Family History Family History: Reviewed & Not Pertinent Family History: Pancreatic cancer in cousin. Breast cancer in Aunt and cousin. Mother is alive with Parkinsons. Father is alive. Parental Family History Reviewed: Yes Children Family History Reviewed: Yes Sibling(s) Family History Reviewed.: Yes Medication/Allergy Allergies/Adverse Reactions: No Known Allergies Allergy (Unverified 02/16/17 06:05) Review of Systems ROS unobtainable: Due to mental status Review of Systems: Only speaks in brief sentences. Does not answer all questions. Physical Exam Vital Signs: Temp Pulse Resp BP Pulse Ox 97.3 F 76 18 131/84 H 92 02/16/17 08:44 02/16/17 08:44 02/16/17 08:44 02/16/17 08:44 02/16/17 08:44 Pulse Oximeter Continuous Start: 02/16/17 02: 57 Freq: RTQ4 Status: Active Document 02/16/17 04:00 SFL (Rec: 02/16/17 04:38 SFL [id number]) Pulse Oximetry Assessment Oxygen Saturation (92-100) 97 Oxygen Flow Rate (L/min) 1.5 Equipment Usage Initial Set Up Continuous Pulse Oximeter 24 Hour Charge Charge Now Continuous SpO2 Machine # 13 Intake & Output 02/15/17 02/16/17 02/17/17 06:59 06:59 06:59 Intake Total 233 Balance 233 Weight 111.5 kg General appearance: PRESENT: no acute distress, well-developed Exam: 56 year old Male. His is at bedside, but does not contribute to the conversation. Eye exam: PRESENT: PERRLA. ABSENT: scleral icterus Throat exam: PRESENT: other - White tongue. Neck exam: ABSENT: lymphadenopathy, tenderness Respiratory exam: PRESENT: clear to auscultation ajit Cardiovascular exam: PRESENT: RRR. ABSENT: systolic murmur GI/Abdominal exam: PRESENT: soft, tenderness - epigastric area.. ABSENT: organolmegaly Extremities exam: ABSENT: pedal edema Neurological exam: PRESENT: alert, awake, other - Seems to understand conversation, but a very poor historian. Unable to fully answer all questions. Psychiatric exam: PRESENT: flat affect Skin exam: PRESENT: other - Moist.. ABSENT: pallor Results Laboratory Results: 02/16/17 04:55 Lactic Acid 1.1 Impressions: Chest X-Ray 02/15/17 23:59 IMPRESSION: 1. No acute pulmonary process identified. Assessment & Plan - Diagnosis (1) Liver mass Is this a current diagnosis for this admission?: Yes Plan: I have not been able to fond out what test patient has been scheduled for. I do not believe patient has had a biopsy yet. I will try to obtain additional information as to the status of his work-up.
[2017-02-16] MEDS ORDERED: MULTIVITAMINS W-IRON TABLET, CHEWABLE PO SCH (10:00)
[2017-02-16] MEDS ORDERED: LEVOFLOXACIN 750 MG/D5W RTU 750 MG/150 ML RTUPB IV SCH (10:00)
[2017-02-16] MEDS: GUAIFENESIN 600 MG TABLET.SA PO SCH ×2 (10:20→21:03)
[2017-02-16] MEDS: FAMOTIDINE 20 MG TABLET PO SCH ×2 (10:21→21:03)
[2017-02-16] MEDS: THIAMINE HCL 100 MG TABLET PO SCH (10:21)
[2017-02-16] MEDS: FOLIC ACID 1 MG TABLET PO SCH (10:21)
[2017-02-16] MEDS: TIOTROPIUM BROMIDE DPI 5 CAP/KIT (18 MCG/CAP) IH SCH (10:22)
--- NOTE | 2017-02-16 10:23 | Progress Note ---
Provider Note Provider Note: Patient admitted this morning for COPD exacerbation with possible early pneumonia. Chart reviewed; patient examined 56-year-old male with history of COPD, psoriasis, liver and kidney masses for which the patient was scheduled to have some outpatient imaging, presented to the ER with worsening shortness of breath. He required several nebulizer treatment and was started on BiPAP to maintain his oxygen saturation levels. He was admitted for COPD exacerbation with possible early pneumonia and sepsis. WBC 25.2, lactic acid 1.1 [2.5]. Creatinine 1.4, AST/AST 71/87, alk phos 213 Continue with aggressive nebulizer treatment, steroids, empiric IV antibiotics. Oncology input noted. We will follow
--- NOTE | 2017-02-16 15:45 | EKG REPORT ---
SEVERITY:- ABNORMAL ECG - SINUS RHYTHM LAD, CONSIDER LEFT ANTERIOR FASCICULAR BLOCK PROBABLE RIGHT VENTRICULAR HYPERTROPHY ABNORMAL T, CONSIDER ISCHEMIA, INFERIOR LEADS : Confirmed by: Orly Vazquez 16-Feb-2017 15:44:37
[2017-02-16] MEDS ORDERED: CEFTRIAXONE 1 GM/D5W RTU 1 GM/50 ML RTUPB IV SCH (22:00)
[2017-02-17] MEDS: IPRATROPIUM/ALBUTEROL 0.5-2.5 MG/3 ML AMPUL NEB SCH ×4 (02:02→20:29)
[2017-02-17] MEDS: METHYLPREDNISOLONE INJ 125 MG/2 ML SDV IV SCH (06:21)
[2017-02-17] MEDS: HEPARIN SOD (PORCINE) 5,000 UNIT/ML 1 ML SYRINGE SUBCUT SCH ×3 (06:22→21:29)
[2017-02-17 06:28] LABS: HEMATOCRIT 29.8 % (37.9-51.0); HEMOGLOBIN 10.3 g/dL (13.5-17.0); HGB HCT DIFFERENCE 1.1; MEAN CORPUSCULAR HEMOGLOBIN 29.3 pg (27.0-33.4); MEAN CORPUSCULAR HGB CONC 34.7 g/dL (32.0-36.0); MEAN CORPUSCULAR VOLUME 85 fl (80-97); RED BLOOD COUNT 3.53 10^6/uL (4.35-5.55); RED CELL DISTRIBUTION WIDTH 14.7 % (11.5-14.0)
[2017-02-17 06:41] LABS: ALANINE AMINOTRANSFERASE 74 U/L (21-72); ALBUMIN 2.7 g/dL (3.5-5.0); ALKALINE PHOSPHATASE 170 U/L (38-126); ANION GAP 14 (5-19); ASPARTATE AMINO TRANSFERASE 55 U/L (17-59); BILIRUBIN,DIRECT 0.6 mg/dL (0.0-0.4); BILIRUBIN,TOTAL 0.6 mg/dL (0.2-1.3); BLOOD UREA NITROGEN 28 mg/dL (7-20); CALCIUM 7.8 mg/dL (8.4-10.2); CARBON DIOXIDE 24 mmol/L (22-30); CHLORIDE 100 mmol/L (98-107); CREATININE RESULT 1.04 mg/dL (0.52-1.25); GLUCOSE 151 mg/dL (75-110); POTASSIUM 4.6 mmol/L (3.6-5.0); SODIUM 137.6 mmol/L (137-145); TOTAL PROTEIN 5.8 g/dL (6.3-8.2)
[2017-02-17 06:52] LABS: BAND NEUTROPHILS % (MANUAL) 2 % (3-5); BASOPHILS % (MANUAL) 0 % (0-2); EOSINOPHILS % (MANUAL) 0 % (0-6); LYMPHOCYTES % (MANUAL) 1 % (13-45); TOTAL CELLS COUNTED 100
[2017-02-17 06:53] LABS: ANISOCYTOSIS SLIGHT; POIKILOCYTOSIS SLIGHT; POLYCHROMASIA SLIGHT; TARGET CELLS 1+
[2017-02-17 06:54] LABS: WHITE BLOOD COUNT 39.2 10^3/uL (4.0-10.5)
--- NOTE | 2017-02-17 09:01 | PDOC PROGRESS REPORT ---
Subjective Progress Note for:: 02/17/17 Subjective:: Day 1 of hospitalization. Follow-up visit for acute COPD exacerbation with possible early pneumonia. 56-year-old male with history of CVA COPD, psoriasis, recently diagnosed liver and kidney masses for which the patient was scheduled to have some outpatient imaging, presented to the ER with worsening shortness of breath. He required several nebulizer treatment and was started on BiPAP to maintain his oxygen saturation levels. He was admitted for COPD exacerbation with possible early pneumonia with sepsis. Treatment with aggressive nebulizers, steroids, empiric IV antibiotics was initiated. Patient is generally improved. He has not needed NPPV for the past 24 hours and is no longer requiring supplemental total oxygen since last night Overnight events noted. Patient is lying in bed he appears comfortable. He denies shortness of breath, chest pain, nausea, vomiting, diarrhea, abdominal pain, fever or chills. He remains afebrile Physical Exam Vital Signs: Temp Pulse Resp BP Pulse Ox 97.9 F 75 19 136/84 H 94 02/17/17 07:25 02/17/17 07:25 02/17/17 07:25 02/17/17 07:25 02/17/17 07:25 Pulse Oximeter Continuous Start: 02/16/17 02: 57 Freq: RTQ4 Status: Active Document 02/17/17 04:00 [facility] (Rec: 02/17/17 04:33 [facility] [email or web address]) Pulse Oximetry Assessment Oxygen Saturation (92-100) 97 Equipment Usage Equipment in Use Continuous SpO2 Machine # 13 Intake & Output 02/16/17 02/17/17 02/18/17 06:59 06:59 06:59 Intake Total 233 3305 Output Total 300 Balance 233 3005 Weight 111.5 kg 112.9 kg Results Laboratory Results: 02/17/17 05:47 02/17/17 05:47 02/17/17 02/17/17 05:47 05:47 WBC 39.2 H* RBC 3.53 L Hgb 10.3 L Hct 29.8 L MCV 85 MCH 29.3 MCHC 34.7 RDW 14.7 H Plt Count 571 H Seg Neutrophils % Not Reportable Lymphocytes % Not Reportable Monocytes % Not Reportable Eosinophils % Not Reportable Basophils % Not Reportable Absolute Neutrophils Not Reportable Absolute Lymphocytes Not Reportable Absolute Monocytes Not Reportable Absolute Eosinophils Not Reportable Absolute Basophils Not Reportable Sodium 137.6 Potassium 4.6 Chloride 100 Carbon Dioxide 24 Anion Gap 14 BUN 28 H Creatinine 1.04 Est GFR ( Amer) > 60 Est GFR (Non-Af Amer) > 60 Glucose 151 H Calcium 7.8 L Total Bilirubin 0.6 AST 55 ALT 74 H Alkaline Phosphatase 170 H Total Protein 5.8 L Albumin 2.7 L Impressions: Chest X-Ray 02/15/17 23:59 IMPRESSION: 1. No acute pulmonary process identified. Assessment & Plan - Diagnosis (1) COPD exacerbation Is this a current diagnosis for this admission?: Yes Plan: CT chest of 02/08/17 revealed severe paraseptal emphysematous change with multiple pneumatoceles and several pulmonary nodules. CXR on admission with NAD. Dyspnea improving. Continue nebulizer treatment, IV antibiotics, and changed IV Solu-Medrol to prednisone 40 mg daily for 5 days (2) Acute hypoxemic respiratory failure Is this a current diagnosis for this admission?: Yes Plan: Acute hypoxemic respiratory failure due to above, requiring nonpositive pressure ventilation and supplemental oxygen. Resolved (3) Leukocytosis Qualifiers: Leukocytosis type: unspecified Qualified Code(s): D72.829 - Elevated white blood cell count, unspecified Is this a current diagnosis for this admission?: Yes Plan: WBC 39.2 (25.2). Patient remains afebrile, possibly due to IV Solu Medrol. Sputum, urine, and blood cultures no growth to date. Pathologist to review blood smear. We will follow (4) Liver mass Is this a current diagnosis for this admission?: Yes Plan: Patient was scheduled to have a PET scan today. Radiology called to see this will be done as an outpatient. Oncology input noted (5) Acute kidney injury Is this a current diagnosis for this admission?: Yes Plan: Acute kidney injury, nonoliguric. Improving with IV fluids. Creatinine 1 [1.4] . (6) Severe obesity (BMI 35.0-35.9 with comorbidity) Is this a current diagnosis for this admission?: Yes Plan: Moderate obesity likely due to excess caloric intake, BMI 35.7. Outpatient weight loss recommended (7) DVT prophylaxis Is this a current diagnosis for this admission?: Yes Plan: Subcutaneous Lovenox - Time Time Spent with patient: 35 or more minutes Smoking Cessation Education: 3 to 10 minutes Medications reviewed and adjusted accordingly: Yes Anticipated discharge: Home - Inpatient Certification Medical Necessity: Risk of Complication if Not Cared For in Hospital - Plan Summary Plan Summary: Patient still requiring inpatient management. Plan to discharge in a.m. if clinically stable
--- NOTE | 2017-02-17 09:16 | EKG REPORT ---
SEVERITY:- ABNORMAL ECG - INCOMPLETE ANALYSIS DUE TO MISSING DATA IN PRECORDIAL LEAD(S) SINUS TACHYCARDIA PROBABLE RIGHT VENTRICULAR HYPERTROPHY INFERIOR INFARCT, AGE INDETERMINATE : Confirmed by: Orly Vazquez 17-Feb-2017 09:15:39
[2017-02-17] MEDS: LEVOFLOXACIN 750 MG TABLET PO SCH (10:30)
[2017-02-17] MEDS: GUAIFENESIN 600 MG TABLET.SA PO SCH ×2 (10:31→21:29)
[2017-02-17] MEDS: FOLIC ACID 1 MG TABLET PO SCH (10:31)
[2017-02-17] MEDS: THIAMINE HCL 100 MG TABLET PO SCH (10:31)
[2017-02-17] MEDS: FAMOTIDINE 20 MG TABLET PO SCH ×2 (10:31→21:29)
[2017-02-17] MEDS: TIOTROPIUM BROMIDE DPI 5 CAP/KIT (18 MCG/CAP) IH SCH (10:32)
[2017-02-17] MEDS: MULTIVITAMINS W-IRON TABLET, CHEWABLE PO SCH (12:03)
[2017-02-18] MEDS: IPRATROPIUM/ALBUTEROL 0.5-2.5 MG/3 ML AMPUL NEB SCH ×3 (02:08→14:33)
[2017-02-18] MEDS: HEPARIN SOD (PORCINE) 5,000 UNIT/ML 1 ML SYRINGE SUBCUT SCH ×2 (06:25→15:02)
--- NOTE | 2017-02-18 07:52 | PDOC PROGRESS REPORT ---
Subjective Progress Note for:: 02/18/17 Subjective:: Pt doing better this am, told nursing to have him walk the muir to make sure no change in 02 sat, and HR. PET/CT could not be done due to inpt status, rescheduling for this coming saturday if possible. Physical Exam Vital Signs: Temp Pulse Resp BP Pulse Ox 99.5 F 94 20 117/68 96 02/18/17 03:49 02/18/17 03:49 02/18/17 03:49 02/18/17 03:49 02/18/17 04:00 Pulse Oximeter Continuous Start: 02/16/17 02: 57 Freq: RTQ4 Status: Active Document 02/18/17 04:00 SFL (Rec: 02/18/17 05:57 SFL [email or web address]) Pulse Oximetry Assessment Oxygen Saturation (92-100) 96 Oxygen Delivery Method Room Air Equipment Usage Equipment in Use Continuous SpO2 Machine # 13 Intake & Output 02/17/17 02/18/17 02/19/17 06:59 06:59 06:59 Intake Total 3305 1526 Output Total 300 Balance 3005 1526 Weight 112.9 kg 114.7 kg General appearance: PRESENT: no acute distress, well-developed, well-nourished Head exam: PRESENT: atraumatic, normocephalic Eye exam: PRESENT: conjunctiva pink, EOMI, PERRLA. ABSENT: scleral icterus Ear exam: PRESENT: normal external ear exam Mouth exam: PRESENT: moist, tongue midline Neck exam: ABSENT: carotid bruit, JVD, lymphadenopathy, thyromegaly Respiratory exam: PRESENT: clear to auscultation ajit. ABSENT: rales, rhonchi, wheezes Cardiovascular exam: PRESENT: RRR. ABSENT: diastolic murmur, rubs, systolic murmur Pulses: PRESENT: normal dorsalis pedis pul Vascular exam: PRESENT: normal capillary refill GI/Abdominal exam: PRESENT: normal bowel sounds, soft. ABSENT: distended, guarding, mass, organolmegaly, rebound, tenderness Rectal exam: PRESENT: deferred Extremities exam: PRESENT: full ROM. ABSENT: calf tenderness, clubbing, pedal edema Neurological exam: PRESENT: alert, awake, oriented to person, oriented to place , oriented to time, oriented to situation, CN II-XII grossly intact. ABSENT: motor sensory deficit Psychiatric exam: PRESENT: appropriate affect, normal mood. ABSENT: homicidal ideation, suicidal ideation Skin exam: PRESENT: dry, intact, warm. ABSENT: cyanosis, rash Results Laboratory Results: 02/17/17 05:47 02/17/17 05:47 02/16/17 19:35 Sputum Gram Stain - Final 02/16/17 19:35 Sputum Sputum Culture - Final Impressions: Chest X-Ray 02/15/17 23:59 IMPRESSION: 1. No acute pulmonary process identified. Assessment & Plan - Diagnosis (1) COPD exacerbation Is this a current diagnosis for this admission?: Yes Plan: Likely SCOTT/SOB issue is COPD exacerbation, con't w/ steroids, nebs as per hospitalist team (2) Liver mass Is this a current diagnosis for this admission?: Yes Plan: Needs PET/CT, my office is rescheduling and will let nursing staff know date and time later this am. Will f/u pt for this as outpt, will need liver bx but d/ w Dr. Schulte who recommended PET before bx given location of tumor and consideration of tumor necrosis. (3) Leukocytosis Qualifiers: Leukocytosis type: bandemia Qualified Code(s): D72.825 - Bandemia Is this a current diagnosis for this admission?: Yes Plan: Likely related to possible infection and recent steroid initiation. Maybe more related to steroids than worsening infection. - Time Time Spent with patient: 35 or more minutes Critical Time spent with patient: 35 or more minutes - Inpatient Certification Based on my medical assessment, after consideration of the patient's comorbidities, presenting symptoms, or acuity I expect that the services needed warrant INPATIENT care.: Yes I certify that my determination is in accordance with my understanding of Medicare's requirements for reasonable and necessary INPATIENT services [42 CFR 412.3e].: Yes Medical Necessity: Need for IV Antibiotics
[2017-02-18] MEDS ORDERED: POLYETHYLENE GLYCOL 3350 POWDER 17 GM/1 PACKET PO PRN (08:18)
[2017-02-18] MEDS ORDERED: LORAZEPAM INJ 2 MG/1 ML VIAL IV PRN (08:30)
[2017-02-18] MEDS ORDERED: SENNOSIDES/DOCUSATE 8.6-50 MG 1 EACH TABLET PO ONE (08:30)
[2017-02-18] MEDS ORDERED: LEVALBUTEROL HCL NEB 1.25 MG/3 ML AMPUL NEB PRN (09:00)
[2017-02-18] MEDS: THIAMINE HCL 100 MG TABLET PO SCH (09:07)
[2017-02-18] MEDS: FOLIC ACID 1 MG TABLET PO SCH (09:07)
[2017-02-18] MEDS: FAMOTIDINE 20 MG TABLET PO SCH (09:07)
[2017-02-18] MEDS: LEVOFLOXACIN 750 MG TABLET PO SCH (09:08)
[2017-02-18] MEDS: TIOTROPIUM BROMIDE DPI 5 CAP/KIT (18 MCG/CAP) IH SCH (09:08)
--- NOTE | 2017-02-18 09:10 | EKG REPORT ---
SEVERITY:- ABNORMAL ECG - SINUS TACHYCARDIA PROBABLE RIGHT VENTRICULAR HYPERTROPHY INFERIOR INFARCT, AGE INDETERMINATE : Confirmed by: Orly Vazquez 18-Feb-2017 09:10:16
[2017-02-18] MEDS ORDERED: PREDNISONE 20 MG TABLET PO SCH (10:00)
[2017-02-18] MEDS ORDERED: GUAIFENESIN 600 MG TABLET.SA PO SCH (10:00)
[2017-02-18] MEDS: MULTIVITAMINS W-IRON TABLET, CHEWABLE PO SCH (11:23)
[2017-02-18 11:37] LABS: ANION GAP 12 (5-19); BLOOD UREA NITROGEN 29 mg/dL (7-20); CALCIUM 7.9 mg/dL (8.4-10.2); CARBON DIOXIDE 25 mmol/L (22-30); CHLORIDE 99 mmol/L (98-107); CREATININE RESULT 1.04 mg/dL (0.52-1.25); GLUCOSE 113 mg/dL (75-110); POTASSIUM 4.9 mmol/L (3.6-5.0); SODIUM 135.8 mmol/L (137-145)
[2017-02-18 12:44] LABS: HEMATOCRIT 32.3 % (37.9-51.0); HGB HCT DIFFERENCE 0.7; MEAN CORPUSCULAR HEMOGLOBIN 28.8 pg (27.0-33.4); MEAN CORPUSCULAR VOLUME 85 fl (80-97); RED BLOOD COUNT 3.82 10^6/uL (4.35-5.55); RED CELL DISTRIBUTION WIDTH 14.6 % (11.5-14.0); WHITE BLOOD COUNT 27.6 10^3/uL (4.0-10.5)
[2017-02-18 13:30] VITALS: BP 115/70
--- NOTE | 2017-02-18 14:38 | PDOC DISCHARGE SUMMARY ---
General - Admit/Disc Date/PCP Admission Date/Primary Care Provider: 02/16/17 02:22 Discharge Date: 02/18/17 - Consultants: Oncology-Dr. Carmen - Discharge Diagnosis (1) COPD exacerbation Is this a current diagnosis for this admission?: Yes (2) Acute hypoxemic respiratory failure Is this a current diagnosis for this admission?: Yes (3) Leukocytosis Is this a current diagnosis for this admission?: Yes (4) Liver mass Is this a current diagnosis for this admission?: Yes (5) Acute kidney injury Is this a current diagnosis for this admission?: Yes (6) Severe obesity (BMI 35.0-35.9 with comorbidity) Is this a current diagnosis for this admission?: Yes - Additional Information Resuscitation Status: Full Code Discharge Diet: Cardiac Discharge Activity: Activity As Tolerated Home Medications: Mometasone/Formoterol [Dulera 100 Mcg/5 Mcg Inhaler] 1 puff IN DAILY 02/16/17 Levofloxacin [Levaquin 750 mg Tablet] 750 mg PO DAILY #5 tablet 02/18/17 Prednisone [Deltasone 20 mg Tablet] 40 mg PO DAILY 5 Days #10 tablet 02/18/17 History of Present Illness Patient complains of: Shortness of breath of several days' duration History of Present Illness: MERYL CASTRO is a 56 year old male with history of COPD, psoriasis, CVA, who was recently diagnosed with liver and kidney masses for which she was scheduled to have some outpatient imaging. He presented to the emergency room complaining of worsening shortness of breath of several days' duration. For further details please refer to previously dictated H&P Hospital Course Hospital Course: MERYL CASTRO is a 56 year old male with history of COPD, psoriasis, CVA, who was recently diagnosed with liver and kidney masses for which she was scheduled to have some outpatient imaging. He presented to the emergency room complaining of worsening shortness of breath of several days' duration. He required several nebulizer treatment and was started on BiPAP to maintain his oxygen levels. He was admitted for COPD exacerbation with possible early pneumonia/sepsis. Treatment included aggressive nebulizer, IV steroids which were later transitioned to oral prednisone, empiric IV antibiotics which was later changed to oral levofloxacin. Patient is significantly improved. Chest x -ray does not reveal any acute infiltrate. He has not needed an PPV for the past 48 hours. He is no longer requiring supplemental oxygen since 2 nights ago. Is requesting to be discharged home. He ambulated in the hallways with mild elevation is in his heart rates up to 110 bpm with no complaints of chest pain, shortness of breath or dizziness. Of note his white blood cell count did jump up significantly to WBC 27.6 [39.2][25.2]. This was felt to be due to aggressive steroids. Patient's service captain has recommended a repeat CBC as outpatient which she will follow Of note, his outpatient PET scan has been scheduled for 02/24/[address] Carmen Physical Exam Vital Signs: Temp Pulse Resp BP Pulse Ox 99.4 F 94 14 122/66 95 02/18/17 07:30 02/18/17 08:22 02/18/17 08:22 02/18/17 07:30 02/18/17 08:22 Pulse Oximeter Continuous Start: 02/16/17 02: 57 Freq: RTQ4 Status: Active Document 02/18/17 08:22 [facility] (Rec: 02/18/17 10:54 [facility] [email or web address]) Pulse Oximetry Assessment Oxygen Saturation (92-100) 95 Oxygen Delivery Method Room Air Fraction of Inspired Oxygen (FIO2) 21 Equipment Usage Equipment in Use Continuous SpO2 Machine # 13 Intake & Output 02/17/17 02/18/17 02/19/17 06:59 06:59 06:59 Intake Total 3305 1526 Output Total 300 Balance 3005 1526 Weight 112.9 kg 114.7 kg General appearance: PRESENT: no acute distress, cooperative, obese Head exam: PRESENT: atraumatic, normocephalic Respiratory exam: PRESENT: decreased breath sounds, rhonchi, symmetrical, unlabored Cardiovascular exam: PRESENT: RRR, +S1, +S2, tachycardia - Up to 110 with ambulation GI/Abdominal exam: PRESENT: normal bowel sounds, soft. ABSENT: ascites, diminished bowel sounds, distended, firm, guarding, hernia, hyperactive bowel sounds, hypoactive bowel sounds, mass, Clemons's sign, organolmegaly, rebound, rigid, tenderness, other Musculoskeletal exam: PRESENT: ambulatory, full ROM Neurological exam: PRESENT: alert, awake, oriented to person, oriented to place , oriented to time, oriented to situation, reflexes normal, CN II-XII grossly intact, normal gait Results Laboratory Results: 02/17/17 05:47 02/18/17 10:33 02/18/17 10:33 Sodium 135.8 L Potassium 4.9 Chloride 99 Carbon Dioxide 25 Anion Gap 12 BUN 29 H Creatinine 1.04 Est GFR ( Amer) > 60 Est GFR (Non-Af Amer) > 60 Glucose 113 H Calcium 7.9 L 02/16/17 15:45 Clean Catch Midstream Urine Culture - Final NO GROWTH 2 DAYS 02/16/17 19:35 Sputum Gram Stain - Final 02/16/17 19:35 Sputum Sputum Culture - Final Impressions: Chest X-Ray 02/15/17 23:59 IMPRESSION: 1. No acute pulmonary process identified. Status: Image reviewed by me Qualifiers PATEINT BEING DISCHARGED WITH ANY OF THE FOLLOWING DIAGNOSIS?: No Plan Time Spent: Greater than 30 Minutes - I have reviewed the discharge diagnosis and discharge plan with the patient. He understands that his outpatient PET scan was rescheduled to 02/24/2017 by his oncologist. He understands that he will have a repeat CBC and follow up with his oncologist. He is to follow-up with his primary care physician as well as with his business services tech Dr. Jaimee King. Additionally I did review the discharge plan with
[2017-02-18 20:06] LABS: PATH REVIEW PATHOLOGIST REVIEWED
[2017-02-19] MEDS ORDERED: SENNOSIDES/DOCUSATE 8.6-50 MG 1 EACH TABLET PO PRN (05:00)
== END 2017-02-18 15:21 | disposition home or self-care (01) | DRG 190 ==
LOC: ER 23:49 → EH 02-16 02:22 → 3W 02-16 04:10
PROVIDERS: ADMIT Family Medicine; ATTEND Family Medicine
PROC: 5A09357 Assistance with Respiratory Ventilation, Less than 24 Consecutive Hours, Continuous Positive Airway Pressure (ICD-10-PCS; principal; 2017-02-16)
PROC: 3E0F73Z Introduction of Anti-inflammatory into Respiratory Tract, Via Natural or Artificial Opening (ICD-10-PCS; 2017-02-16)
DX: J44.1 Chronic obstructive pulmonary disease with (acute) exacerbation (principal); J96.01 Acute respiratory failure with hypoxia; N17.9 Acute kidney failure, unspecified; R16.0 Hepatomegaly, not elsewhere classified; E66.9 Obesity, unspecified; Z68.35 Body mass index [BMI] 35.0-35.9, adult; L40.9 Psoriasis, unspecified; D64.9 Anemia, unspecified; R73.01 Impaired fasting glucose; N18.2 Chronic kidney disease, stage 2 (mild); E86.0 Dehydration; Z88.0 Allergy status to penicillin; Z86.73 Personal history of transient ischemic attack (TIA), and cerebral infarction without residual deficits; Z87.891 Personal history of nicotine dependence; Z80.3 Family history of malignant neoplasm of breast; Z80.0 Family history of malignant neoplasm of digestive organs
CPT/HCPCS: 36415; 71010; 80048; 80053; 82803; 83036; 83605; 85025; 85027; 87040; 87070; 87086; 87205; 93005; 93010; 94640; 94660; 94762; 94799; 96374; 96375; 99285; J0696; J1644; J1956; J2060; J2930; J3370; J3475; J3490; J7030; J7512; J7620

== ENCOUNTER → 2017-02-24 | Outpatient (CLI) | payer SELFPAY ==
--- NOTE | 2017-02-16 09:15 | PDOC CONSULTATION ---
Consultation Consult Date: 02/16/17 Consult reason:: Lung and Liver mass - possible cancer. History of Present Illness Admission Date/PCP: NAILA SHAFFER MD History of Present Illness: MERYL CASTRO is a 56 year old male who has been seen by Dr. Shaffer in our practice. The patient states that Dr. Shaffer has scheduled a dye test on his kidneys tomorrow. However, last night patient became much more dyspnic. He felt like his temperature was dropping and he presented to the ED. He was admitted for pneumonia/sepsis. This morning he states that he is feeling much better. Past Medical History Past Medical History: Patient tells me that most of his illnesses have been from injuries. 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 Lives with: Spouse/Significant other Smoking Status: Former Smoker - Quit smoking 11 years ago, but still has occasional Marijuanna. Frequency of Alcohol Use: Occasional - He states that he drinks "some" Drugs: Marijuana Family History Family History: Reviewed & Not Pertinent Family History: Pancreatic cancer in cousin. Breast cancer in Aunt and cousin. Parental Family History Reviewed: Yes - Mom with Parkinsons Children Family History Reviewed: Yes Sibling(s) Family History Reviewed.: Yes Medication/Allergy Allergies/Adverse Reactions: No Known Allergies Allergy (Unverified 02/16/17 06:05) Review of Systems ROS unobtainable: Due to mental status Review of Systems: Dyspnea, sweats and chills. Otherwise, he is unable to fully tell me. Physical Exam General appearance: PRESENT: no acute distress, cooperative Exam: Well Nourished, Male. His speech is clear, but he only speaks a little at a time. He is a poor historian and is unable to answer many questions. Although is at bedside, she has not contributed to conversation. Eye exam: PRESENT: PERRLA Mouth exam: PRESENT: moist, tongue midline - White tongue Neck exam: ABSENT: lymphadenopathy, tenderness Respiratory exam: PRESENT: clear to auscultation ajit Cardiovascular exam: PRESENT: RRR. ABSENT: systolic murmur Pulses: PRESENT: +1 pedal pulses bilateral Vascular exam: ABSENT: pallor GI/Abdominal exam: PRESENT: soft, tenderness - Epigastric area.. ABSENT: distended Extremities exam: ABSENT: pedal edema Neurological exam: PRESENT: alert, awake, other - Full neuro exam deferred. Patient was not visualized ambulating. Psychiatric exam: PRESENT: flat affect Skin exam: PRESENT: other - Moist.. ABSENT: jaundice Assessment & Plan - Diagnosis (1) Liver mass Is this a current diagnosis for this admission?: Yes Plan: I am unsure at this time what test patient is scheduled for as outpatient. I believe he will need PET/CT and biopsy. I will try to determine if either of these can be done, but if patient medically stable for Discharge, OK to discharge with further follow-up as outpatient.
--- NOTE | 2017-02-25 13:23 | RADIOLOGY REPORT (SQ) ---
EXAM DESCRIPTION: PET CT SKULL/THIGH COMPLETED DATE/TIME: 02/24/2017 8:33 pm REASON FOR STUDY: LUNG CANCER C34.31 MALIGNANT NEOPLASM OF LOWER LOBE, RIGHT BRONCHUS OR L COMPARISON: CT angio chest 02/08/2017 RADIONUCLIDE AND DOSE: 12.9 mCi F18 FDG The route of agent administration: Intravenous FASTING BLOOD SUGAR: 92 mg/dl CONTRAST TYPE AND DOSE: No CT contrast given. TECHNIQUE: Blood glucose level was verified. Above dose of FDG was injected intravenously. 2-D seg mented attenuation correction images were obtained from the base of the skull to the midthighs. Nonc ontrast CT images were obtained for attenuation correction and fusion with emission images. CT image s were performed without oral or intravenous contrast and are not sensitive for parenchymal lesions. A series of overlapping emission PET images were obtained. Images reviewed and manipulated at [facility] work station by the radiologist. Images stored on PACS. LIMITATIONS: None. FINDINGS: HEAD AND NECK: No areas of abnormal metabolic activity in the soft tissues of the head and neck. CHEST: No areas of abnormal metabolic activity in the chest. A 2 x 1.4 cm precarinal lymph node is present with SUV 1.8, at baseline. The 1.4 x 0.8 cm right lower lobe nodule described on CT angio chest 02/08/2017 is smaller today, now 7 mm in size. SUV below baseline today, 1.4. Multiple subcentimeter smooth subpleural nodules described on CT angio chest 02/08/2017 are non metab olic. ABDOMEN AND PELVIS: There is a dominant mass in the left lobe liver subdiaphragmatic surface, 18 x 12 cm in size. There is peripheral and spotty central increased metabolic activity with SUV 8.4) this measured 11 x [address] 02/08/2017). In the left lobe liver along the falciform ligament, a 5.3 x 4.3 cm mass is present with SUV of 8 (wa s 3.9 x 3[address] 02/08/2017). Focal increased uptake is seen in the sigmoid colon adjacent to a diverticulum, with SUV of 7.6. Thi s could be neoplastic or inflammatory. PROXIMAL LOWER EXTREMITIES: No areas of abnormal metabolic activity in the soft tissues of the lower extremities. BONES: Diffuse increased marrow activity is seen throughout the skeleton, involving the proximal nette ri and femurs, bony pelvis, and visualized spine. Spine activity ranges from 3.5 to 4 SUV. This has an appearance of marrow stimulation or marrow activity rather than diffuse metastatic disease ADDITIONAL CT FINDINGS: Extensive bullae throughout the lungs. Mild gynecomastia. Degenerative disc changes lumbar spine. Colonic diverticulosis. OTHER: Liver background activity 2.2 SUV. Blood pool background activity 1.5 SUV IMPRESSION: Metabolically active liver masses worrisome for either primary liver malignancy or metas tatic disease. Indeterminate area of increased metabolic activity in the sigmoid colon adjacent to a diverticulum. No worrisome findings in the lungs. Probable old granulomatous or postinflammatory changes as above. TECHNICAL DOCUMENTATION: JOB ID: [id number] [employer]- All Rights Reserved
== END ==
LOC: RAD 16:26
PROVIDERS: ATTEND Internal Medicine
DX: C34.31 Malignant neoplasm of lower lobe, right bronchus or lung (principal)
CPT/HCPCS: 78815; A9552

== ENCOUNTER 2017-03-05 09:03 | Day surgery (SDC) | payer SELFPAY ==
[2017-03-05 10:25] LABS: HEMATOCRIT 32.3 % (37.9-51.0); HEMOGLOBIN 11.4 g/dL (13.5-17.0); HGB HCT DIFFERENCE 1.9; MEAN CORPUSCULAR HEMOGLOBIN 29.3 pg (27.0-33.4); MEAN CORPUSCULAR HGB CONC 35.2 g/dL (32.0-36.0); MEAN CORPUSCULAR VOLUME 83 fl (80-97); RED BLOOD COUNT 3.88 10^6/uL (4.35-5.55); RED CELL DISTRIBUTION WIDTH 14.7 % (11.5-14.0); WHITE BLOOD COUNT 15.4 10^3/uL (4.0-10.5)
[2017-03-05 10:27] LABS: PARTIAL THROMBOPLASTIN TIME 41.3 SEC (23.5-35.8)
[2017-03-05 10:43] LABS: BLOOD UREA NITROGEN 9 mg/dL (7-20); CREATININE RESULT 0.82 mg/dL (0.52-1.25)
[2017-03-05] MEDS ORDERED: MIDAZOLAM 2 MG/2 ML INJ ONE (11:08)
[2017-03-05] MEDS ORDERED: FENTANYL CITRATE INJ/PF 100 MCG/2 ML AMPUL ONE (11:08)
[2017-03-05] MEDS ORDERED: OXYCODONE-ACETAMINOPHEN 5-325 MG TABLET ONE (13:09)
--- NOTE | 2017-03-05 13:09 | RADIOLOGY REPORT (SQ) ---
EXAM DESCRIPTION: CT BIOPSY LIVER; CT NEEDLE PLACEMENT COMPLETED DATE/TIME: 03/05/2017 11:49 am; 03/05/2017 11:48 am REASON FOR STUDY: MALGNANT NEOPLASM OF LOWER LOBE; MALGNANT NEOPLASM OF LOWER LOBE, LIVER BX C34.31 MALIGNANT NEOPLASM OF LOWER LOBE, RIGHT BRONCHUS OR L COMPARISON: 02/24/2017. TECHNIQUE: After obtaining informed consent, the patient was brought to the CT suite and was placed supine on the CT gurney. The patient was prepped and draped in the usual sterile fashion . Axial cindy ges were obtained for targeting of the lesion in the left lobe of the liver. An appropriate access si te was selected. IV sedation was administered and physician direction by the registered nurse using 1 milligrams of Versed and 50 micrograms of fentanyl. Physiologic monitoring was provided before, duri ng, and after sedation. The total sedation time was 30 minutes. Documentation face to face time, the performing proceduralist, spent monitoring the patient: [address] of the liver was performed to localize an approach for the left lobe liver biopsy. A percutaneous site was marked. Time out was performed. After skin prep and local lidocaine for skin and deep tissue anesthesia, a coaxial biopsy needle sys tem was used to obtain several cores of tissue from the left lobe of the liver. These were submitted to the lab in formalin. Biopsy tract was embolized with a Gelfoam plug. No immediate postprocedure complications. Total of 3.[address] fluoro was used. All CT scanners at this facility use dose modulation, iterative reconstruction, and/or weight based d osing when appropriate to reduce radiation dose to as low as reasonably achievable (ALARA). [facility]: Dose Right [facility]: CareDose [facility]: Dose Right [facility]: Teradose 4D [facility]: [employer] RADIATION DOSE: CT Rad equipment meets quality standard of care and radiation dose reduction techniq ues were employed. CTDIvol: 20.3 mGy. DLP: 461 mGy-cm. mGy. LIMITATIONS: None. FINDINGS: CT guided liver biopsy as detailed above. IMPRESSION: CT GUIDED LEFT LOBE LIVER BIOPSY PERFORMED ABOVE. PATHOLOGY PENDING. NO IMMEDIATE COMPLICATIONS. COMMENT: Patient medication list reviewed:Yes- Quality ID# [id number]:Eligible professional attests to docu menting in the medical record they obtained, updated, or reviewed the patient's current medications.. Quality ID [id number]: Final reports for procedures using fluoroscopy that document radiation exposure dorcas sharlene, or exposure time and number of fluorographic images (if radiation exposure indices are not avail able) TECHNICAL DOCUMENTATION: JOB ID: [id number] Quality ID # [id number]: Final reports with documentation of one or more dose reduction techniques (e.g., A utomated exposure control, adjustment of the mA and/or kV according to patient size, use of iterative reconstruction technique) 2010 [employer]- All Rights Reserved
[2017-03-05 17:36] VITALS: BP 114/71
== END 2017-03-05 14:00 | disposition home or self-care (01) ==
LOC: RAD 09:03
PROVIDERS: ATTEND Internal Medicine
PROC: 0BBJ3ZX Excision of Left Lower Lung Lobe, Percutaneous Approach, Diagnostic (ICD-10-PCS; principal; 2017-03-05)
DX: C34.31 Malignant neoplasm of lower lobe, right bronchus or lung (principal)
CPT/HCPCS: 36415; 84520; 82565; 85027; 85610; 85730; 88342 ×2; 88341 ×2; 88305 ×2; 88313 ×2; 77012; 47000; J2250; J3010

== ENCOUNTER 2017-03-28 10:27 | Emergency (ER) | payer SELFPAY ==
[2017-03-28] MEDS ORDERED: IPRATROPIUM/ALBUTEROL 0.5-2.5 MG/3 ML AMPUL NEB ONE (11:28)
--- NOTE | 2017-03-28 11:28 | ER Document Report ---
ED General - General Chief Complaint: Breathing Difficulty Stated Complaint: CHEST PAIN Time Seen by Provider: 03/28/17 11:07 Notes: 56 year male presents with chest pain shortness of breath since last night constant, better in certain positions, associated with some cough but no wheezing. History of COPD, pneumonia and? Lung nodules which may be cancer although he does not say that he has cancer. Positive low-grade fever. No myalgias. Positive flu shot this year. TRAVEL OUTSIDE OF THE [place] IN LAST 30 DAYS: No - Related Data Allergies/Adverse Reactions: No Known Allergies Allergy (Verified 03/28/17 10:32) Past Medical History - Social History Smoking Status: Former Smoker Chew tobacco use (# tins/day): No Frequency of alcohol use: None Drug Abuse: Marijuana Family History: Reviewed & Not Pertinent Patient has suicidal ideation: No Patient has homicidal ideation: No - Past Medical History Cardiac Medical History: Denies: Hx Coronary Artery Disease, Hx Heart Attack, Hx Hypertension Pulmonary Medical History: Reports: Hx COPD, Hx Pneumonia Denies: Hx Asthma, Hx Bronchitis Neurological Medical History: Denies: Hx Cerebrovascular Accident, Hx Seizures Renal/ Medical History: Denies: Hx Peritoneal Dialysis Musculoskeltal Medical History: Reports Hx Arthritis Skin Medical History: Reports Hx Psoriasis Psychiatric Medical History: Denies: Hx Depression Past Surgical History: Reports: Hx Herniorrhaphy - Immunizations Hx Diphtheria, Pertussis, Tetanus Vaccination: Yes Review of Systems - Review of Systems Notes: REVIEW OF SYSTEMS GEN: Denies fever, chills, weight loss ENT: Denies sore throat, nasal discharge, ear pain EYES: Denies blurry vision, eye pain, discharge CV: Chest pain RESP: Cough wheezing shortness of breath GI: Denies abdominal pain, nausea, vomiting, diarrhea MSK: Denies joint pain/swelling, edema, SKIN: Denies rash, skin lesions LYMPH: Denies swollen glands/lymph nodes NEURO: Denies headache, focal weakness or numbness, dizziness PSYCH: Denies depression, suicidal or homicidal ideation PHYSICAL EXAMINATION General: No acute distress, well-nourished Head: Atraumatic, normocephalic ENT: Mouth normal, oropharynx moist, no exudates or tonsillar enlargement Eyes: Conjunctiva normal, pupils equal, lids normal Neck: No JVD, supple, no guarding CVS: Normal rate, regular rhythm, no murmurs Resp: No resp distress, equal and normal breath sounds bilaterally GI: Nondistended, soft, no tenderness to palpation, no rebound or guarding Ext: No deformities, no edema, normal range of motion in upper and lower ext Back: No CVA or midline TTP Skin: No rash, warm Lymphatic: No lymphadeopathy noted Neuro: Awake, alert. Face symmetric. GCS 15. Physical Exam - Vital signs Vitals: Temp Pulse Resp BP Pulse Ox 99.3 F 122 H 16 125/79 94 03/28/17 10:43 03/28/17 10:43 03/28/17 10:43 03/28/17 10:43 03/28/17 10:43 Course - Re-evaluation Re-evalutation: 03/28/17 12:26 56 from a presents with shortness of breath and chest pain. He is markedly tachycardic. He has a possible history of lung cancer versus liver metastases. He has a low-grade temperature. Signs and symptoms most consistent with pneumonia however pulmonary embolus is a consideration. Septic protocol was initiated. It took a while for the 03/28/17 13:13 Reassessed at about 12:45 PM. Heart rate 105 capillary refill good, breathing is unchanged and patient has clear lungs. X-ray shows likely developing retrocardiac pneumonia. Antibiotics ordered. Lactic is elevated at 2.2. Diagnosis is compensated sepsis. Ordered a CT PE to look for thrombosis as well as mass, discussed with hospitalist who accepted. - Vital Signs Vital signs: Temp Pulse Resp BP Pulse Ox 99.3 F 122 H 27 H 108/71 91 L 03/28/17 10:43 03/28/17 10:43 03/28/17 12:01 03/28/17 12:01 03/28/17 12:01 - Laboratory Result Diagrams: 03/28/17 11:35 03/28/17 11:35 Laboratory results interpreted by me: 03/28/17 03/28/17 03/28/17 11:35 11:35 11:35 WBC 16.2 H RBC 3.39 L Hgb 9.3 L Hct 27.4 L RDW 16.6 H Plt Count 667 H Absolute Neutrophils 12.4 H Absolute Monocytes 1.5 H Sodium 133.1 L Chloride 94 L Glucose 114 H Lactic Acid 2.2 H - Diagnostic Test Radiology reviewed: Image reviewed, Reports reviewed - EKG Interpretation by Me Rate: Normal, Tachycardia Rhythm: NSR When compared to previous EKG there are: No significant change Discharge - Discharge Clinical Impression: Pneumonia of left lower lobe due to infectious organism Sepsis Qualifiers: Sepsis type: sepsis due to unspecified organism Qualified Code(s): A41.9 - Sepsis, unspecified organism Condition: Fair Disposition: ADMITTED INPATIENT Admitting Provider: [facility] Unit Admitted: Telemetry
[2017-03-28] MEDS: NORMAL SALINE 1000 ML 1,000 ML IV PRN ×2 (11:49→11:54)
[2017-03-28 11:52] LABS: ABSOLUTE BASOPHILS # (AUTO) 0.1 10^3/uL (0.0-0.2); ABSOLUTE LYMPHOCYTES (AUTO) 2.2 10^3/uL (0.5-4.7); ABSOLUTE MONOCYTES (AUTO) 1.5 10^3/uL (0.1-1.4); ABSOLUTE NEUT (AUTO) 12.4 10^3/uL (1.7-8.2); BASOPHILS % (AUTO) 0.5 % (0-2); HEMATOCRIT 27.4 % (37.9-51.0); HEMOGLOBIN 9.3 g/dL (13.5-17.0); LYMPHOCYTES % (AUTO) 13.6 % (13-45); MEAN CORPUSCULAR HEMOGLOBIN 27.3 pg (27.0-33.4); MEAN CORPUSCULAR HGB CONC 33.8 g/dL (32.0-36.0); MEAN CORPUSCULAR VOLUME 81 fl (80-97); MONOCYTES % (AUTO) 9.6 % (3-13); PLATELET COUNT 667 10^3/uL (150-450); RED BLOOD COUNT 3.39 10^6/uL (4.35-5.55); RED CELL DISTRIBUTION WIDTH 16.6 % (11.5-14.0); SEGMENTED NEUTROPHILS % (AUTO) 76.3 % (42-78); TOTAL CELLS COUNTED % (AUTO) 100 %; WHITE BLOOD COUNT 16.2 10^3/uL (4.0-10.5)
[2017-03-28 12:11] LABS: ANION GAP 14 (5-19); BLOOD UREA NITROGEN 11 mg/dL (7-20); CALCIUM 9.1 mg/dL (8.4-10.2); CARBON DIOXIDE 25 mmol/L (22-30); CHLORIDE 94 mmol/L (98-107); GLUCOSE 114 mg/dL (75-110); POTASSIUM 4.6 mmol/L (3.6-5.0); SODIUM 133.1 mmol/L (137-145)
[2017-03-28] MEDS ORDERED: CEFEPIME 1 GM/D5W RTU 1 GM/50 ML RTUPB IV ONE (12:15)
[2017-03-28] MEDS ORDERED: PREDNISONE 20 MG TABLET PO ONE (12:19)
--- NOTE | 2017-03-28 13:08 | RADIOLOGY REPORT (SQ) ---
EXAM DESCRIPTION: CHEST SINGLE VIEW COMPLETED DATE/TIME: 03/28/2017 12:32 pm REASON FOR STUDY: cp COMPARISON: 02/16/2017 EXAM PARAMETERS: NUMBER OF VIEWS: One view. TECHNIQUE: Single frontal radiographic view of the chest acquired. RADIATION DOSE: NA LIMITATIONS: None. FINDINGS: LUNGS AND PLEURA: On the current study there is some blunting of the costophrenic angles w hich I cannot exclude a small bilateral pleural effusions and I cannot exclude some associated atelec tasis or infiltrate in the lung bases. MEDIASTINUM AND HILAR STRUCTURES: No masses. Contour normal. HEART AND VASCULAR STRUCTURES: Cardiac silhouette is enlarged. BONES: No acute findings. HARDWARE: None in the chest. OTHER: No other significant finding. IMPRESSION: Bibasilar densities as noted above TECHNICAL DOCUMENTATION: JOB ID: [id number]- All Rights Reserved
--- NOTE | 2017-03-28 13:48 | RADIOLOGY REPORT (SQ) ---
EXAM DESCRIPTION: CTA CHEST COMPLETED DATE/TIME: 03/28/2017 1:16 pm REASON FOR STUDY: r/o PE, tachyy, lunvh CA COMPARISON: CTA of the chest dated 02/08/2017 TECHNIQUE: CT scan of the chest performed using helical scanning technique with dynamic intravenous contrast injection. Images reviewed with lung, soft tissue and bone windows. Reconstructed coronal and sagittal MPR images reviewed. Additional 3 dimensional post-processing performed to develop Maximal Intensity Projection images (MN P). All images stored on PACS. All CT scanners at this facility use dose modulation, iterative reconstruction, and/or weight based d osing when appropriate to reduce radiation dose to as low as reasonably achievable (ALARA). [facility]: Dose Right [facility]: CareDose [facility]: Dose Right [facility]: Teradose 4D [facility]: [employer] CONTRAST TYPE AND DOSE: contrast/concentration: Isovue 370.00 mg/ml; Total Contrast Delivered: 80.0 ml; Total Saline Delivered: 100.0 ml Contrast bolus optimized for the pulmonary arteries. Not diagnostic for the aorta. RENAL FUNCTION: Creatinine 0.78 RADIATION DOSE: CT Rad equipment meets quality standard of care and radiation dose reduction techniq ues were employed. CTDIvol: 16.5 - 21.2 mGy. DLP: 775 mGy-cm. . LIMITATIONS: None. FINDINGS: LUNGS AND PLEURA: The previously described severe paraseptal emphysematous changes involvi ng predominately the upper lung sanchez with multiple pneumatoceles being identified appears stable. The previously described multiple small pulmonary nodules are again identified with a couple being ob scured due to adjacent density. Overall these appear unchanged. On the current study there has been interval development of small bilateral pleural effusions with associated airspace consolidation in the lung bases most consistent with atelectatic changes although I cannot exclude pneumonic consolida tions. AORTA AND GREAT VESSELS: No aneurysm. Contrast bolus not optimized for the aorta. HEART: There has been interval development of a large pericardial effusion. No significant coronary a rtery calcifications. PULMONARY ARTERIES: No emboli visualized in the main pulmonary arteries or the segmental branches. HILAR AND MEDIASTINAL STRUCTURES: Prominent mediastinal lymph nodes are identified showing interval i ncrease in size and number as compared to the previous study. HARDWARE: None in the chest. UPPER ABDOMEN: There has been fairly dramatic interval increase in size of the previously described h ypoattenuating mass in the dome of the left hepatic lobe measuring 18.9 x 14.2 cm on the current stud y. Again the appearance would suggest a neoplastic process although the possibility of an infectious process cannot be excluded THYROID AND OTHER SOFT TISSUES: No masses. No adenopathy. BONES: No acute or significant finding. 3D MIPS: Confirm above findings. OTHER: No other significant finding. IMPRESSION: No evidence for pulmonary embolic disease. Interval development of small bilateral pleu ral effusions with associated airspace consolidation which could represent atelectatic changes or bas ilar infiltrates. Interval development of a large pericardial effusion. The previously described em physematous changes and associated pneumatoceles appears stable. Pulmonary nodules appear fairly sta ble. Interval increase in size of the previously described hypoattenuating mass in the left hepatic lobe as noted above presumably related to a neoplastic process although the possibility of an infecti ous process cannot be excluded. Other findings as noted above COMMENT: Quality ID # [id number]: Final reports with documentation of one or more dose reduction techniques (e.g., Automated exposure control, adjustment of the mA and/or kV according to patient size, use of iterative reconstruction technique) TECHNICAL DOCUMENTATION: JOB ID: [id number] [employer]- All Rights Reserved
[2017-03-28 16:30] VITALS: BP 97/78
--- NOTE | 2017-03-30 12:14 | EKG REPORT ---
SEVERITY:- BORDERLINE ECG - SINUS TACHYCARDIA LOW VOLTAGE THROUGHOUT : Confirmed by: Roma Chirinos MD 30-Mar-2017 12:14:08
== END 2017-03-28 16:30 | disposition short-term general hospital (02) ==
LOC: ER 10:27
DX: J18.9 Pneumonia, unspecified organism (principal); A41.9 Sepsis, unspecified organism; R06.00 Dyspnea, unspecified; R07.9 Chest pain, unspecified; Z87.891 Personal history of nicotine dependence
CPT/HCPCS: 93005; 94640; 99285; 96361; 96374; 36415; 87040; 85025; 80048; 84484; 83605; 71010; 71275; 93010; J7512; J7030; J7620; J0692